=== PATIENT | male | born 1965 | race Caucasian/White ===

== ENCOUNTER 2017-02-01 21:06 | Inpatient (IN) | payer OTHER ==
[~2017-02-01] VITALS: Ht 160 cm; Wt 70.0 kg
[~2017-02-01 21:06] MED LIST: CA CHLORIDE 10% 10 ML SYRINGE ONE; EPINEPHrine 0.1 MG/ML SYG ONE; NA BICARBONATE 8.4% 50 ML SYG ONE
[2017-02-01] MEDS ORDERED: ASPIRIN 325 MG TAB PO STA (21:12)
[2017-02-01] MEDS ORDERED: ONDANSETRON 4 MG INJ IV STA (21:12)
[2017-02-01] MEDS ORDERED: morphine 4 MG/ML VIAL IV STA (21:12)
[2017-02-01] MEDS ORDERED: SOD CHLORIDE 0.9% 500 ML IV STA (21:21)
--- NOTE | 2017-02-01 21:21 | ERD ---
ER Documentation Chief Complaint Chief Complaint dizziness/vomiting all week, worse today, now CP upon arrival; ekg= STEMI HPI This is a 51-year-old male who has a history of diabetes, high cholesterol, hypertension, dialysis who had a recent myocardial infarction with stent placed at all of the hospital last Sunday. Patient states that he has been taking his medicine and he does take Plavix and Coumadin. He states that today's felt dizzy off and on with vomiting and off-and-on chest pressure without radiation. He says currently his pain is very mild. No diaphoresis no difficulty breathing. He said he went to dialysis this morning ROS All systems reviewed and are negative except as per history of present illness. FmHx Family History: coronary disease Physical Exam Vitals Vital Signs Date Time Temp Pulse Resp B/P Pulse Ox O2 Delivery O2 Flow Rate FiO2 02/01/17 21:09 98.3 69 20 88/67 100 Physical Exam Const: Well-developed, well-nourished Head: Atraumatic, normocephalic Eyes: Normal Conjunctiva, PERRLA, EOMI, normal sclera, no nystagmus ENT: Normal External Ears, Nose and Mouth, moist mucus membranes. Neck: Full range of motion. No meningismus, no lymphadenopathy. Resp: Clear to auscultation bilaterally, no wheezing, rhonchi, rales Cardio: Regular rate and rhythm, no murmurs, S1 S2 present Abd: Soft, non tender x 4, non distended. 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 as well normal inspection, neurovascularly intact x 4 Neur: Awake and alert, STR 5/5 x 4, sensation intact x 4, no focal findings, cerebellum intact Psych: Normal Mood and Affect Results 24 hrs Current Medications Medications (Trade) Dose Ordered Sig/Rossy Route PRN Reason Start Time Stop Time Status Last Admin Dose Admin Aspirin (Aspirin) 325 mg ONCE STAT PO 02/01/17 21:12 02/01/17 21:14 DC Morphine Sulfate (morphine) 4 mg ONCE STAT IV 02/01/17 21:12 02/01/17 21:14 DC Ondansetron HCl (Zofran Inj) 4 mg ONCE STAT IV 02/01/17 21:12 02/01/17 21:14 DC Procedures/MDM EKG: Rate/Rhythm: Acute myocardial infarction of the inferior leads QRS, ST, QT: NORMAL TN, QRS, QT, ST elevation in lead II, 3, aVF] Impression: Acute PA Patient received aspirin here Zofran and morphine. Spoke with raw scales operator Dr. Breaux who is in route and [id number] Patient will go to the [facility] urgently Critical Care Time: 30 minutes Treatments/Evaluations: Close monitoring and treatment of unstable vital signs, cardiorespiratory, and neurologic status, while maintaining tight balance of fluid, respiratory, and cardiac interventions. This time includes discussing the case with the patient and the patient's family. This time does not include all procedures stated elsewhere in this record. This time also includes reviewing old records, labs and radiological studies. This time includes examining and re-examining the patient. Additionally, this time also includes arranging care with admitting and consulting physicians. Departure Diagnosis: Primary Impression: ST elevation myocardial infarction (STEMI) Involved coronary artery: other inferior wall coronary artery Qualified Code : I21.19 - ST elevation myocardial infarction (STEMI) involving other coronary artery of inferior wall Condition: Serious VERONICA JARRETT DO Feb 01, 2017 21:21
[2017-02-01 21:26] LABS: BASOPHIL # 0.1 10^3/ul (0.0-0.1); BASOPHILS % 0.4 % (0.0-2.0); EOSINOPHILS % 0.3 % (0.0-7.0); HEMATOCRIT 32.4 % (42.0-52.0); HEMOGLOBIN 10.8 g/dl (14.0-18.0); LYMPHOCYTES # 1.1 10^3/ul (0.8-2.9); LYMPHOCYTES % 9.3 % (15.0-51.0); MEAN CORPUSCULAR HGB CONC 33.3 g/dl (32.0-37.0); MEAN CORPUSCULAR VOLUME 93.1 fl (82.0-101.0); MEAN PLATELET VOLUME 12.2 fl (7.4-10.4); MONOCYTE # 1.3 10^3/ul (0.3-0.9); MONOCYTES % 10.7 % (0.0-11.0); NEUTROPHIL # 9.6 10^3/ul (1.6-7.5); NEUTROPHILS % 78.5 % (39.0-77.0); PLATELET COUNT 204 10^3/UL (140-415); RED BLOOD COUNT 3.48 10^6/ul (4.70-6.10); RED CELL DISTRIBUTION WIDTH 13.3 % (11.5-14.5); WHITE BLOOD COUNT 12.3 10^3/ul (4.8-10.8)
[2017-02-01] MEDS ORDERED: HEPARIN 5,000 UNIT/0.5 ML VIAL IV ONE (21:30)
--- NOTE | 2017-02-01 21:30 | RADRPT ---
PROCEDURE: XR Chest. CLINICAL INDICATION: Chest pain TECHNIQUE: Single frontal chest x-ray. COMPARISON: None. FINDINGS: The lungs are clear. No focal opacification is seen. Mild central vascular congestion is identified . The cardiomediastinal silhouette is enlarged. The osseous structures are unremarkable. Right up per chest central line is seen with the tip in the right atrium. There is no pneumothorax. Transcuta neous pacer pad seen overlapping the right hemithorax. IMPRESSION: 1. Cardiomegaly with mild increased vascular congestion. 2. Right central line in good position without pneumothorax. RPTAT: PP .Kashif Robin MD, MD Date Time Electronically viewed and signed by .Kashif Robin MD, MD on 02/01/2017 21:30 .B/
[2017-02-01] MEDS ORDERED: CLON0.2T5 PO (21:31)
[2017-02-01] MEDS ORDERED: DOCU-144 PO (21:32)
[2017-02-01] MEDS ORDERED: MINO2.5T16 PO (21:32)
[2017-02-01] MEDS ORDERED: BENA40TA41 PO (21:33)
[2017-02-01] MEDS ORDERED: ISOS60TA PO (21:33)
[2017-02-01] MEDS ORDERED: CARV25TA79 PO (21:34)
[2017-02-01] MEDS ORDERED: WARF3TAB PO (21:34)
[2017-02-01] MEDS ORDERED: SEVE800T10 PO (21:35)
[2017-02-01] MEDS ORDERED: CLOP75TA27 PO (21:35)
[2017-02-01] MEDS ORDERED: INSU100I33 SC (21:38)
[2017-02-01] MEDS ORDERED: AZIT250T6 PO (21:38)
[2017-02-01] MEDS ORDERED: NITROGLYCERIN (IC) 100 MCG/ML INJ ONE (21:39)
[2017-02-01] MEDS ORDERED: FENTAnyl 50 MCG/ML VIAL ONE (21:39)
[2017-02-01] MEDS ORDERED: ATOR40TA68 PO (21:39)
[2017-02-01] MEDS ORDERED: MIDAZOLAM 1 MG/ML 2 ML INJ ONE (21:39)
[2017-02-01] MEDS ORDERED: FAMO20TA18 PO (21:39)
[2017-02-01] MEDS ORDERED: IODIXANOL LOCM 100 ML BTL ONE (21:39)
[2017-02-01] MEDS ORDERED: LIDOCAINE 1% (MDV) 20 ML INJ ONE (21:39)
[2017-02-01] MEDS ORDERED: HEPARIN 1000 UNITS/ML 10 ML INJ ONE (21:39)
[2017-02-01] MEDS ORDERED: SOD CHLORIDE 0.9% 500 ML ONE (21:40)
[2017-02-01] MEDS ORDERED: IOHEXOL 350MG/ML 50 ML BTL ONE (21:40)
[2017-02-01 21:45] VITALS: TEMP 98.3
[2017-02-01 21:46] LABS: INR 2.55; PARTIAL THROMBOPLASTIN TIME 39.4 Sec (25.0-35.0); PROTIME 28.1 Sec (11.9-14.9); PT RATIO 2.2
[2017-02-01 21:49] LABS: CALCIUM 9.2 mg/dl (8.4-10.2); CREATININE 6.24 mg/dl (0.61-1.24); POTASSIUM 5.3 mmol/L (3.5-5.1)
--- NOTE | 2017-02-01 21:56 | CONS ---
Date/Time of Note Date/Time of Note DATE: 02/01/17 TIME: 21:47 Assessment/Plan Assessment/Plan Chief Complaint/Hosp Course 51 yo with multiple comorbidities, cad, esrd, dm, pvd post bka, presents with needle like cp for days, with stent 8 days ago, and convulsions noted today. Problems: Additional Assessment/Plan Abnormal ekg with recent angioplasty and stent placement Limited history, but given symptoms and abnormal ekg with known recent stent, will proceed with cor angiogram. Risks and benefits reviewed, boarder hand present, pt agrees to proceed, all questions answered. Consultation Date/Type/Reason Admit Date/Time 02/01/2017 Date of Consultation: Feb 01, 2017 Type of Consultation: cardiology Reason for Consultation STEMI Referring Provider: VERONICA JARRETT DO Hx of Present Illness 51 yo with known cad, diabetes, pvd s/p r bka, who presented to [facility] last week and had a stent placed to unknown artery eight days ago, was in the hospital for 8 days. Since then he's felt needle-like pain in the chest, has told the doctor at dialysis but was told he was fine. The reason he was brought to the ER was because he was found to be convulsing and his called paramedics. In ER pt denies pain to me. He states he was on aspirin and warfarin prior to [facility] admission last week, but on discharge he stopped the aspirin and has been taking warfarin and clopidogrel. He states compliance with meds. He does not know why he is on warfarin but has been on it for many years. Spoke to pt's son, who provided a bit more additional history EKG shows nsr, ST elevations diffusely, most prominent in II, III, AVR, depression in AVR, and depression in V1. Constitutional: chills Eyes: no complaints ENT: no complaints Respiratory: no complaints Cardiovascular: chest pain (needle pain) Gastrointestinal: no complaints Genitourinary: no complaints Musculoskeletal: no complaints Skin: no complaints Neurologic: no complaints Endocrine: no complaints Lymphatic: no complaints Psychological: nl mood/affect, no complaints Immunologic: no complaints Past Medical History Medical History: angina, coronary artery disease, diabetes, high cholesterol, hypertension Past Surgical History Past Surgical Hx: angioplasty Family History Significant Family History: no pertinent family hx Social History Smoking Status: Former smoker Exam/Review of Systems Vital Signs Vitals Vital Signs Date Time Temp Pulse Resp B/P Pulse Ox O2 Delivery O2 Flow Rate FiO2 02/01/17 21:25 98.3 69 16 89/75 100 Room Air 02/01/17 21:22 2 02/01/17 21:10 28 Exam Constitutional: alert, oriented, well developed Psych: nl mood/affect, no complaints Head: atraumatic, normocephalic Eyes: EOMI, PERRL, nl conjunctiva, nl lids, nl sclera ENMT: nl external ears & nose, nl lips & teeth, nl nasal mucosa & septum Neck: supple, No bruits, No jvd Respiratory: clear to auscultation, normal air movement Cardiovascular: nl pulses (normal right femoral pulse, absent right radial pulse), regular rate and rhythm Gastrointestinal: nl liver, spleen, non-tender, soft Musculoskeletal: other (right bka) Extremities: No edema Neurological: nl mental status, nl speech Skin: nl turgor, No rash or lesions Results Result Diagram: 02/01/172109 Results 24 hrs Laboratory Tests Test 02/01/17 21:10 White Blood Count 12.3 H Red Blood Count 3.48 L Hemoglobin 10.8 L Hematocrit 32.4 L Mean Corpuscular Volume 93.1 Mean Corpuscular Hemoglobin 31.0 Mean Corpuscular Hemoglobin Concent 33.3 Red Cell Distribution Width 13.3 Platelet Count 204 Mean Platelet Volume 12.2 H Neutrophils % 78.5 H Lymphocytes % 9.3 L Monocytes % 10.7 Eosinophils % 0.3 Basophils % 0.4 Nucleated Red Blood Cells % 0.0 Neutrophils # 9.6 H Lymphocytes # 1.1 Monocytes # 1.3 H Eosinophils # 0.0 Basophils # 0.1 Nucleated Red Blood Cells # 0.0 Prothrombin Time 28.1 H Prothrombin Time Ratio 2.2 INR International Normalized Ratio 2.55 Activated Partial Thromboplast Time 39.4 H JADE PENNINGTON Feb 01, 2017 21:56
[2017-02-01 22:01] LABS: TROPONIN-I 0.058 ng/ml (0.00-0.12)
[2017-02-01] MEDS ORDERED: ONDANSETRON 4 MG INJ ONE (22:02)
[2017-02-01] MEDS ORDERED: SOD CHLORIDE 0.9% 1,000 ML IV SCH (22:22)
[2017-02-01] MEDS ORDERED: AL HYDROX/MG HYDROX/SIMETH 30 ML CUP PO PRN (22:30)
[2017-02-01] MEDS ORDERED: NITROGLYCERIN (SL) 0.4 MG TAB SL PRN (22:30)
[2017-02-01] MEDS ORDERED: ACETAMINOPHEN 650MG/20.3ML CUP PO PRN (22:30)
[2017-02-01] MEDS ORDERED: ACETAMINOPHEN 325 MG TAB PO PRN (22:30)
[2017-02-01] MEDS ORDERED: ONDANSETRON 4 MG INJ IV PRN ×2 (22:30)
[2017-02-01] MEDS ORDERED: morphine 2 MG INJ IV PRN (22:30)
--- NOTE | 2017-02-01 22:46 | OPR ---
Date/Time of Note Date/Time of Note DATE: 02/01/17 TIME: 22:36 Operative Report Procedure Date: Feb 01, 2017 Preoperative Diagnosis abnormal EKG, possible STEMI Postoperative Diagnosis No acute coronary syndrome, patent prox LAD stent Operation/Procedure Performed coronary angiogram, left ventriculography Surgeon see signature line Nanoelectronics Engineer na Anesthesia Type: moderate sedation Estimated Blood Loss: 10 - 50 ml's Transfusion none Specimen none Grafts/Implants none Complications none Indications Convulsions and atypical chest pain with recent h/o stent one week ago for ? NSTEMI and abnormal EKG Procedure Description The procedure was described to the pt, with mustanger present. Risks and benefits reviewed and he agreed to proceed. Pt brought to laboratory technical specialist emergently. Right groin prepped and draped, lidocaine used for local anesthesia. Pt received versed and fentanyl for sedation. Fluoroscopy used to identify landmarks, and using modified seldinger technique with a micropuncture, access obtained in right common femoral artery and sheath placed. JL4 and JR4 catheters advanced over standard j wire and engaged in LM and RCA, and angiography with contrast performed. Pigtail catheter advanced across the LV, pressures measured, and LV gram performed. Pullback gradient measured across aortic valve. Angiography of right MIRROR FABRICATION SUPERVISOR demonstrates sheath above the bifurcation, and Angioseal placed. Findings d/w pt and his two sons and he left the room in stable condition. FINDINGS: LM - short, normal LAD - 40% ostial/prox disease, proximal stent patent, moderate diffuse disease of LAD in mid and distal portion LCX - 30% mid disease RCA - dominant, 60% mid lesion, and moderate diffuse disease LV - EF 60%, no wall motion abnormalities, no gradient across the aortic valve JADE PENNINGTON Feb 01, 2017 22:46
[2017-02-01 23:00] VITALS: Ht 160 cm; Wt 70.0 kg
[2017-02-01] MEDS ORDERED: GLUCOSE GEL 15 GRAM TUBE BUCCAL PRN (23:00)
[2017-02-01] MEDS ORDERED: GLUCOSE GEL 15 GRAM TUBE PO PRN ×2 (23:00)
[2017-02-01] MEDS ORDERED: GLUCAGON 1 MG INJ IM PRN (23:00)
[2017-02-01] MEDS ORDERED: DEXTROSE 50% 50 ML SYRINGE IV PRN (23:00)
--- NOTE | 2017-02-01 23:03 | HP ---
Date/Time of Note Date/Time of Note DATE: 02/01/17 TIME: 23:03 Assessment/Plan VTE Prophylaxis VTE Prophylaxis Intervention: SCD's Lines/Catheters IV Catheter Type (from Nrs): Saline Lock Assessment/Plan Chief Complaint/Hosp Course This is a admitted to the ICU floor for: #1 Chest pain: Rule out ACS versus infectious versus cardiac vs renal etiology. Initially patient's EKG was concerning for STEMI. However, cardiac catheterization did not show any acute stenosis or signs of ischemia. Patient did have a patent LAD stent recent HI. Stat echocardiogram was ordered, which did not elicit any signs of tamponade though there was signs of pericardial effusion. Pericarditis, probably uremic Moderate sized pericardial effusion without tamponade Intermittent junctional rhythms, possibly secondary to uremia Coronary disease s/p pci/stent last week for an acute coronary syndrome Hypotension, secondary to uremia +/- septic shock ESRD PVD s/p BKA and hand amputation Problems: HPI/ROS Admit Date/Time Admit Date/Time 02/01/2017 Hx of Present Illness cc: chest pain, convulsions This is a 51-year-old male who has a history of diabetes, high cholesterol, hypertension, dialysis who had a recent myocardial infarction with stent placed at all of the hospital last Sunday. History was obtained from the ED physician documentation as well as the finance mgr documentation and from interviewing the patient. Patient states that he has been taking his medicine and he does take Plavix and Coumadin. He states that today's felt dizzy off and on with vomiting and off-and-on chest pressure without radiation. Denied no diaphoresis no difficulty breathing. He said he went to dialysis this morning. Upon coming to the ED the patient was found to have EKG showing nsr, ST elevations diffusely, most prominent in II, III, AVR, depression in AVR, and depression in V1. He was taken to the [facility] emerg[facility]. Catheterization was performed however there were no acute abnormalities found there was a patent ED stent already observed. Patient was subsequently transferred to the telemetry floor by the finance mgr. Shortly after being transferred to the floor, a rapid response was called and the patient. At the bedside the nurse noted that the patient was having convulsions/seizure-like activity. On the front desk monitor it was noted that he was bradycardic in the 60s. He did have pulses. He was nonresponsive at that time. He was given atropine 0.5 mg 1. With subsequent improvement in his heart rate into the 80s. Began to regain his consciousness within a few minutes and he was able to answer questions and stated that he was tired. Patient was subsequently transferred to the ICU. In the ICU, the patient was observed to have similar episodes of bradycardia followed by convulsive convulsions and unresponsiveness. This occurred approximately twice after the rapid response. After the second occurrence, he was loaded with Keppra 1000 mg as is thought to be secondary to seizures. Also of note at this time patient's blood pressure was in the hypotensive range he was given fluid resuscitation with approximately 1500 cc total fluid normal saline however blood pressures were not adequate and levophed was initially started. CT of the brain and abdomen pelvis were also ordered. CT of the abdomen and pelvis showed large pleural effusion. At that time the finance mgr was called and recommendation was to get a stat echocardiogram and have a paracentesis needle at the bedside in case the patient was developing cardiac tamponade. Recommendation by the finance mgr also to switch from Levophed to dopamine. ROS The systems are obtained when patient was back to mental baseline during rapid response Const: As per HPI Eyes : No pain discharge or redness or change in visual acuity ENT: No pain, sore throat, congestion, congestion, dysphagia or discharge Respiratory: No shortness of breath, cough, sputum, wheezing, or pleuritic pain Cardiovascular: As per HPI GI : no change in appetite, abdominal pain, nausea, vomiting, diarrhea, constipation, or change in the color his stool Genitourinary: No dysuria, hematuria, flank pain , discharge or CVA tenderness Musculoskeletal: No joint pain, back pain, neck pain, restricted range of motion in neck or joints Skin: No rash, bruising or hives Neuro: No headache, dizziness, syncope, seizure, focal weakness Endocrine: No polyuria, polydipsia, temperature intolerance Psych: No hallucination, depression, anxiety or suicidal ideation Eyes: no complaints ENT: no complaints Respiratory: no complaints Cardiovascular: chest pain (needle pain) Gastrointestinal: no complaints Genitourinary: no complaints Musculoskeletal: no complaints Skin: no complaints Neurologic: no complaints Lymphatic: no complaints Psychological: nl mood/affect, no complaints Immunologic: no complaints PMH/Family/Social Past Medical History diabetes, high cholesterol, hypertension, ESRD on dialysis, HI Past Surgical History Angioplasty with stents Family History Significant Family History: no pertinent family hx Social History Alcohol Use: none Smoking Status: Former smoker Drug Use: none Exam/Review of Systems Vital Signs Vitals Vital Signs Date Time Temp Pulse Resp B/P Pulse Ox O2 Delivery O2 Flow Rate FiO2 02/01/17 21:45 98.3 69 20 96/69 100 Room Air 02/01/17 21:40 2.0 02/01/17 21:10 28 Exam Exam General: I saw the patient [facility] in the telemetry floor during the rapid response patient was initially noted to be nonresponsive and he was bradycardic, was given atropine 0.5 mg 1 which resulted in subsequent improvement in the heart rate. She will return to baseline mental status over the course of a few minutes stated he was tired. HEENT: Atraumatic, normocephalic. The pupils are equal, round and reactive. Extraocular motor are intact Neck: Supple with full range of motion. No rigidity or meningismus Chest: Nontender Lungs: Clear to auscultation bilaterally no crackles rales or wheezing Heart: Initially sinus bradycardia at approximately 40 bpm with subsequent improvement in the heart rate to 80 bpm after atropine 2.5 mg 1 Abdomen: Soft , nontender, nondistended , bowel sounds are present. No guarding no rebound tenderness , No masses or organomegaly. No costovertebral temporal angle mass Extremities: Right BKA Neurologic: Initially patient was nonresponsive during the rapid response however once returned to his mental baseline he was alert and oriented 3, he was able to answer questions appropriately, was able to follow commands. Cranial nerves II through XII intact, no focal neurological deficits. Additional Comments PROCEDURE: CT BRAIN WITHOUT CONTRAST CLINICAL INDICATION: 51-year-old male with seizures. TECHNIQUE: The study was performed utilizing [employer] VCT 64-slice CT scanner. Direct axial sections were obtained from the foramen magnum to the vertex without the use of intravenous contrast material. Sagittal and coronal reformations were obtained. One or more of the following dose reduction techniques were utilized: automated exposure control, adjustment of the mA and/ or kV according to patient's size and/or use of iterative reconstruction technique. DICOM images are available. The images were viewed on a PACS workstation. CTD/vol = 44.4 mGy; Total Exam DLP = 810.3 mGy-cm. COMPARISON: None. FINDINGS: There is mild prominence of the sulci and cisternal spaces consistent with diffuse volume loss. Otherwise, the ventricles have a normal shape and position. There is no evidence for mass effect or midline shift. There are marked calcifications within the intracranial carotid and vertebral arteries bilaterally. There is no evidence for acute intra or extra-axial blood. The bony calvarium is intact. There are diffuse calcifications identified within the scalp vessels. The visualized paranasal sinuses and mastoid air cells are without significant abnormal soft tissue. IMPRESSION: 1. Mild diffuse volume loss. 2. Extensive vascular calcifications. .Zain Vigil MD, Date Time Electronically viewed and signed by .Zain Vigil MD, MD on 02/02/2017 04:51 .M/ CC: BRADY CONNELL PROCEDURE: XR Chest. CLINICAL INDICATION: Chest pain TECHNIQUE: Single frontal chest x-ray. COMPARISON: None. FINDINGS: The lungs are clear. No focal opacification is seen. Mild central vascular congestion is identified. The cardiomediastinal silhouette is enlarged. The osseous structures are unremarkable. Right upper chest central line is seen with the tip in the right atrium. There is no pneumothorax. Transcutaneous pacer pad seen overlapping the right hemithorax. IMPRESSION: 1. Cardiomegaly with mild increased vascular congestion. 2. Right central line in good position without pneumothorax. RPTAT: PP .Kashif Robin MD, MD Date Time Electronically viewed and signed by .Kashif Robin MD, MD on 02/01/2017 21:30 .B/ CC: VERONICA JARRETT DO PROCEDURE: CT Abdomen and Pelvis without contrast. CLINICAL INDICATION: Abdominal pain and vomiting. TECHNIQUE: CT scan of the abdomen and pelvis without contrast was performed on a multidetector high-resolution CT scanner. The patient was scanned without intravenous contrast. Coronal and sagittal reformatted images were obtained from the axial source images. Images were reviewed on a high-resolution PACS workstation. The total exam CTDI equals 14.75 mGy and the total exam DLP equals 940.53 mGy-cm. DICOM images are available. One or more of the following dose reduction techniques were used: - Automated exposure control. - Adjustment of the mA and/or kV according to patient size. - Use of iterative reconstruction technique. COMPARISON: None. FINDINGS: CT abdomen: A right subclavian central venous dialysis catheter terminates within the right atrium. There is moderate cardiomegaly with a large pericardial effusion measuring up to 2.9 cm in transverse dimension. There is a small right-sided pleural effusion. Lingula and bilateral lower lobe patchy parenchymal opacities with diagnostic considerations including atelectasis, infiltrates and/or fibrosis. There is mild ascites. The liver is normal in size and density without focal mass or intrahepatic biliary dilatation. The spleen is normal in size and homogeneous. The stomach is partially collapsed, but is grossly unremarkable. The pancreas as visualized is normal. Fluid surrounds the gallbladder wall which appears thickened possibly on the basis of ascites. No evidence of intra or extrahepatic biliary ductal dilatation. The adrenal glands are symmetric and normal. There is bilateral renal atrophy. No renal calculus or obstructive uropathy or solid mass lesion is seen. A 11 mm left upper pole renal cyst is noted. The aorta is of normal caliber. Aortic vascular calcifications are present. There is no retroperitoneal lymphadenopathy. The collin hepatis region is clear. There is focal thickening of the hepatic flexure present on axial and coronal images 92 of series 3 and 43 of series 601 respectively. Consider barium enema or direct visualization to exclude an underlying mass. CT pelvis: The small bowel loops situated within the pelvis are unremarkable. The pelvic organs are normal. The pelvic sidewalls and inguinal regions are clear. The sigmoid colon and rectum are unremarkable. No mass, lymphadenopathy, or free fluid is seen. No acute inflammation is seen. No osteolytic or osteoblastic lesion is detected. IMPRESSION: 1. Cardiomegaly with large pericardial effusion. 2. Small right-sided pleural effusion. Lingula and bibasilar parenchymal opacities with considerations including atelectasis, infiltrates and/or fibrosis. 3. Mild ascites. 4. Appearing gallbladder wall thickening which may be secondary to surrounding ascites. 5. Focal thickening of the hepatic flexure without mesenteric inflammatory changes. Consider non emergent barium enema or direct visualization to exclude colonic pathology. RPTAT: HRSR Physician Maria A Date Time Electronically viewed and signed by Joel Corral Physician on 02/02/2017 05 :02 RR/ CC: BRADY CONNELL Labs Result Diagram: 02/01/17210902/01/172109 Medications Medications Current Medications Acetaminophen (Tylenol Tab) 650 mg Q4H PRN PO NON-CARDIAC PAIN LEVEL (1-3); Start 02/01/17 at 22:30 Morphine Sulfate (morphine) 2 mg Q2H PRN IV FOR NON CARDIAC PAIN (4-10); Start 02/01/17 at 22:30 Al Hydrox/Mg Hydrox/Simethicone (Mag-Al Plus) 30 ml Q4H PRN PO GASTROINTESTINAL UPSET; Start 02/01/17 at 22:30 Ondansetron HCl 4 mg 4 mg Q4H PRN IV NAUSEA AND/OR VOMITING; Start 02/01/17 at 22:30 Sodium Chloride (NS) 1,000 ml @ 75 mls/hr [id number] IV ; Start 02/01/17 at 22:22 ; Stop 02/02/17 at 03:21 Ondansetron HCl (Zofran Inj) 4 mg Q6H PRN IV NAUSEA AND/OR VOMITING; Start at 22:30 Nitroglycerin (Nitroglycerin (Sl Tab) 0.4 Mg) 1 tab Q5M PRN SL CHEST PAIN; Start 02/01/17 at 22:30 Acetaminophen (Tylenol Liquid) 650 mg Q6H PRN PO PAIN LEVEL 1-3 OR FEVER; Start 02/01/17 at 22:30 Pantoprazole (Protonix Iv) 40 mg DAILY@06 IV ; Start 02/02/17 at 06:00 Atorvastatin Calcium (Lipitor) 40 mg QHS PO ; Start 02/02/17 at 21:00; Status UNV Benazepril HCl (Lotensin) 40 mg DAILY PO ; Start 02/02/17 at 09:00; Status UNV Carvedilol (Coreg) 25 mg BID PO ; Start 02/02/17 at 09:00; Status UNV Clonidine (Catapres) 0.2 mg BID PO ; Start 02/02/17 at 09:00; Status UNV Clopidogrel Bisulfate (plaVIX) 75 mg DAILY PO ; Start 02/02/17 at 09:00 Docusate Sodium (Colace) 100 mg BID PO ; Start 02/02/17 at 09:00; Status UNV Insulin Glargine (Lantus) 8 unit QHS SC ; Start 02/02/17 at 21:00; Status UNV Isosorbide Mononitrate (Imdur) 60 mg DAILY PO ; Start 02/02/17 at 09:00; Status UNV Minoxidil (Loniten) 5 mg BID PO ; Start 02/02/17 at 09:00; Status UNV Warfarin Sodium (Coumadin) 3 mg DAILY PO ; Start 02/02/17 at 09:00; Status UNV Aspirin (Aspirin) 81 mg DAILY PO ; Start 02/02/17 at 09:00 Diagnostic Test (Pha) (Accu-Chek) 1 ea 02 XX ; Start 02/02/17 at 02:00; Status UNV Miscellaneous Information 1 ea NOTE XX ; Start 02/01/17 at 23:00 Glucose (Glutose) 15 gm Q15M PRN PO DECREASED GLUCOSE; Start 02/01/17 at 23:00 Glucose (Glutose) 22.5 gm Q15M PRN PO DECREASED GLUCOSE; Start 02/01/17 at 23: 00 Dextrose (D50w Syringe) 25 ml Q15M PRN IV DECREASED GLUCOSE; Start 02/01/17 at 23:00 Dextrose (D50w Syringe) 50 ml Q15M PRN IV DECREASED GLUCOSE; Start 02/01/17 at 23:00 Glucagon (Glucagen) 1 mg Q15M PRN IM DECREASED GLUCOSE; Start 02/01/17 at 23: 00 Glucose (Glutose) 15 gm Q15M PRN BUCCAL DECREASED GLUCOSE; Start 02/01/17 at 23:00 BRADY CONNELL Feb 01, 2017 23:03
[2017-02-01 23:05] VITALS: BP 88/55; PULSE 66; RESP 20
[2017-02-01 23:25] VITALS: BP 75/59; PULSE 67
[2017-02-01] MEDS ORDERED: SOD CHLORIDE 0.9% 500 ML IV ONE (23:30)
[2017-02-01] MEDS ORDERED: INSULIN ASPART [NOVOLOG] 3 ML PEN SC ONE (23:30)
[2017-02-01 23:34] VITALS: BP 85/53; RESP 21
[2017-02-02] VITALS (62 sets, daily range): BP systolic 53–202; BP diastolic 13–120; PULSE 0–113; RESP 9–31
[2017-02-02] MEDS ORDERED: METOCLOPRAMIDE 10 MG INJ IV PRN (00:30)
[2017-02-02] MEDS ORDERED: NORepinephrine 8MG/250 ML (PMX 250 ML ONE (01:15)
[2017-02-02] MEDS ORDERED: SOD CHLORIDE 0.9% 500 ML IV ONE ×3 (01:30→07:30)
[2017-02-02] MEDS ORDERED: NORepinephrine 8MG/250 ML (PMX 250 ML IV SCH (01:30)
[2017-02-02 01:46] LABS: AADO2 Arterial 483.2 mmHg (7.0-24.0); Arterial Base Excess -3.7 mmol/L (-3.0-3); Arterial COHb 0.3 % (0.0-3.0); Arterial Fraction of Oxyhgb 98.5 % (93.0-99.0); Arterial HCO3 21.7 mmol/L (22.0-26.0); Arterial MetHb 0.1 % (0.0-1.5); Arterial Total Hemglobin 11.6 g/dl (12.0-18.0); MODE MASK - NRB
[2017-02-02] MEDS ORDERED: ACCU-CHEK XX SCH ×2 (02:00→07:00)
[2017-02-02 02:04] LABS: WHITE BLOOD COUNT 10.5 10^3/ul (4.8-10.8)
[2017-02-02 02:05] LABS: BASOPHILS % 0.4 % (0.0-2.0); EOSINOPHILS % 0.1 % (0.0-7.0); HEMATOCRIT 29.8 % (42.0-52.0); HEMOGLOBIN 9.8 g/dl (14.0-18.0); LYMPHOCYTES # 0.9 10^3/ul (0.8-2.9); MEAN CORPUSCULAR HEMOGLOBIN 31.1 pg (29.0-33.0); MEAN CORPUSCULAR HGB CONC 32.9 g/dl (32.0-37.0); MEAN CORPUSCULAR VOLUME 94.6 fl (82.0-101.0); MEAN PLATELET VOLUME 12.3 fl (7.4-10.4); MONOCYTES % 9.4 % (0.0-11.0); NEUTROPHIL # 8.4 10^3/ul (1.6-7.5); NEUTROPHILS % 80.2 % (39.0-77.0); PLATELET COUNT 186 10^3/UL (140-415); RED BLOOD COUNT 3.15 10^6/ul (4.70-6.10); RED CELL DISTRIBUTION WIDTH 13.4 % (11.5-14.5)
[2017-02-02 02:25] LABS: ALBUMIN 3.1 g/dl (3.3-4.9); ALBUMIN/GLOBULIN RATIO 0.91; CALCIUM 8.8 mg/dl (8.4-10.2); CREATININE 6.35 mg/dl (0.61-1.24); MAGNESIUM 2.2 mg/dl (1.7-2.5); POTASSIUM 4.8 mmol/L (3.5-5.1); TOTAL PROTEIN 6.5 g/dl (6.1-8.1)
[2017-02-02] MEDS ORDERED: LORAZEPAM 2 MG INJ IV PRN (02:30)
[2017-02-02] MEDS ORDERED: INSULIN HUMAN REGULAR 100 UNIT in SOD CHLORIDE 0.9% 99 ML IV SCH (03:00)
[2017-02-02] MEDS ORDERED: DEXTROSE 50% 50 ML SYRINGE IV PRN ×2 (03:00)
[2017-02-02 03:22] LABS: TROPONIN-I 0.053 ng/ml (0.00-0.12)
[2017-02-02 03:26] LABS: CK-MB 1.44 ng/ml (0.0-2.4)
[2017-02-02] MEDS: LEVETIRACETAM 1000 MG (PMX) 100 ML IVPB SCH ×2 (03:48→10:06)
[2017-02-02] MEDS: ACCU-CHEK XX SCH ×11 (03:50→13:30)
--- NOTE | 2017-02-02 04:51 | RADRPT ---
PROCEDURE: CT BRAIN WITHOUT CONTRAST CLINICAL INDICATION: 51-year-old male with seizures. TECHNIQUE: The study was performed utilizing [employer] VCT 64-slice CT scanner. Direct axial sections were obtained from the foramen magnum to the vertex without the use of intravenous contrast material. Sagittal and coronal reformations were obtained. One or more of the following dose reduc tion techniques were utilized: automated exposure control, adjustment of the mA and/or kV according to patient's size and/or use of iterative reconstruction technique. DICOM images are available. The images were viewed on a PACS workstation. CTD/vol = 44.4 mGy; Total Exam DLP = 810.3 mGy-cm. COMPARISON: None. FINDINGS: There is mild prominence of the sulci and cisternal spaces consistent with diffuse volume loss. Oth erwise, the ventricles have a normal shape and position. There is no evidence for mass effect or mid line shift. There are marked calcifications within the intracranial carotid and vertebral arteries bilaterally. There is no evidence for acute intra or extra-axial blood. The bony calvarium is intact . There are diffuse calcifications identified within the scalp vessels. The visualized paranasal sin uses and mastoid air cells are without significant abnormal soft tissue. IMPRESSION: 1. Mild diffuse volume loss. 2. Extensive vascular calcifications. .Zain Vigil MD, Date Time Electronically viewed and signed by .Zain Vigil MD, on 02/02/2017 04:51 .M/
[2017-02-02] MEDS ORDERED: PENDING SANTYL ORDER FOR WOUND CARE XX PRN (05:00)
--- NOTE | 2017-02-02 05:02 | RADRPT ---
PROCEDURE: CT Abdomen and Pelvis without contrast. CLINICAL INDICATION: Abdominal pain and vomiting. TECHNIQUE: CT scan of the abdomen and pelvis without contrast was performed on a multidetector hig h-resolution CT scanner. The patient was scanned without intravenous contrast. Coronal and sagittal reformatted images were obtained from the axial source images. Images were reviewed on a high-resol [employer] PACS workstation. The total exam CTDI equals 14.75 mGy and the total exam DLP equals 940.53 mG y-cm. DICOM images are available. One or more of the following dose reduction techniques were used: - Automated exposure control. - Adjustment of the mA and/or kV according to patient size. - Use of iterative reconstruction technique. COMPARISON: None. FINDINGS: CT abdomen: A right subclavian central venous dialysis catheter terminates within the right atrium. There is mod erate cardiomegaly with a large pericardial effusion measuring up to 2.9 cm in transverse dimension. There is a small right-sided pleural effusion. Lingula and bilateral lower lobe patchy parenchymal opacities with diagnostic considerations including atelectasis, infiltrates and/or fibrosis. There is mild ascites. The liver is normal in size and density without focal mass or intrahepatic b iliary dilatation. The spleen is normal in size and homogeneous. The stomach is partially collapsed , but is grossly unremarkable. The pancreas as visualized is normal. Fluid surrounds the gallbladd er wall which appears thickened possibly on the basis of ascites. No evidence of intra or extrahepat ic biliary ductal dilatation. The adrenal glands are symmetric and normal. There is bilateral renal atrophy. No renal calculus or obstructive uropathy or solid mass lesion is seen. A 11 mm left upper pole renal cyst is noted. The aorta is of normal caliber. Aortic vascular calcifications are present. There is no retroperit chavez lymphadenopathy. The collin hepatis region is clear. There is focal thickening of the hepatic flexure present on axial and coronal images 92 of series 3 and 43 of series 601 respectively. Consid er barium enema or direct visualization to exclude an underlying mass. CT pelvis: The small bowel loops situated within the pelvis are unremarkable. The pelvic organs are normal. T he pelvic sidewalls and inguinal regions are clear. The sigmoid colon and rectum are unremarkable. No mass, lymphadenopathy, or free fluid is seen. No acute inflammation is seen. No osteolytic or osteoblastic lesion is detected. IMPRESSION: 1. Cardiomegaly with large pericardial effusion. 2. Small right-sided pleural effusion. Lingula and bibasilar parenchymal opacities with considerati ons including atelectasis, infiltrates and/or fibrosis. 3. Mild ascites. 4. Appearing gallbladder wall thickening which may be secondary to surrounding ascites. 5. Focal thickening of the hepatic flexure without mesenteric inflammatory changes. Consider non em ergent barium enema or direct visualization to exclude colonic pathology. RPTAT: HRSR Physician Maria A Date Time Electronically viewed and signed by Physician Maria A on 02/02/2017 05:02 RR/
[2017-02-02] MEDS ORDERED: ATROPINE 1 MG/10 ML SYRINGE ONE ×2 (05:19→07:48)
[2017-02-02] MEDS ORDERED: PANTOPRAZOLE 40 MG INJ IV SCH (06:00)
[2017-02-02] MEDS ORDERED: LORAZEPAM 2 MG INJ IV ONE (06:00)
[2017-02-02] MEDS ORDERED: DOPamine-D5W 1.6 MG/ML 250 ML ONE (06:11)
[2017-02-02] MEDS ORDERED: DOPamine-D5W 1.6 MG/ML 250 ML IV SCH (06:30)
[2017-02-02] MEDS ORDERED: SOD CHLORIDE 0.9% 250 ML IV ONE (06:30)
[2017-02-02 07:01] LABS: INR 3.02; PROTIME 32.2 Sec (11.9-14.9); PT RATIO 2.5
[2017-02-02 07:04] LABS: CHOL/HDL RATIO 1.5 RATIO
[2017-02-02 07:14] LABS: ALBUMIN 2.9 g/dl (3.3-4.9); ALBUMIN/GLOBULIN RATIO 0.9; CREATININE 5.68 mg/dl (0.61-1.24); PHOSPHORUS 4.4 mg/dl (2.5-4.9); POTASSIUM 4.6 mmol/L (3.5-5.1); TOTAL PROTEIN 6.1 g/dl (6.1-8.1)
[2017-02-02] MEDS ORDERED: LIDOCAINE 1% (MPF) 5 ML VIAL SC ONE (07:30)
[2017-02-02] MEDS: SEVELAMER 800 MG TAB PO SCH ×2 (07:35→11:30)
[2017-02-02] MEDS ORDERED: INSULIN ASPART [NOVOLOG] 3 ML PEN SC SCH (07:35)
--- NOTE | 2017-02-02 07:48 | PN ---
Date/Time of Note Date/Time of Note DATE: 02/02/17 TIME: 07:38 Assessment/Plan VTE Prophylaxis VTE Prophylaxis Intervention: other (warfarin, elevated INR) Lines/Catheters IV Catheter Type (from Nrs): Peripheral IV Urinary Cath still in place: No Assessment/Plan Chief Complaint/Hosp Course 51 yo with multiple comorbidities presented with convulsions coinciding with junctional rhythm. EKG with ST elevations, pt had a PCI last week, cath with stable coronary disease, and echo shows moderate sized pericardial effusion without tamponade. Patient has pericarditis, most likely etiology is uremic. Problems: Assessment/Plan Impression: Pericarditis, probably uremic Moderate sized pericardial effusion without tamponade Intermittent junctional rhythms, possibly secondary to uremia Coronary disease s/p pci/stent last week for an acute coronary syndrome Hypotension, secondary to uremia +/- septic shock ESRD PVD s/p BKA and hand amputation Reccomendations will place arterial line and central line for better hemodynamic monitoring, emergent need and no family present nor is patient able to give consent D/w Dr. Rosales and patient will undergo dialysis today, and potentially daily dialysis here in hospital asa, clopidogrel, and warfarin Colchicine ordered, if patient becomes more alert can give this to him by mouth Statin for CAD and recent ACS Subjective 24 Hr Interval Summary Free Text/Dictation Overnight pt noted to intermittently convulse, coincides with junctional rhythm with intermittent retrograde P waves. Pt hypotensive and on pressors. CT showed "large pericardial effusion", stat echo demonstrates moderate sized circumferential effusion without tamponade. Arousable but unable to provide meaningful history,when spoken to in Filipino he denies pain, denies dyspnea, says he feels "nelly". Subjective hx not possible: pt critical status (somnolent) Exam/Review of Systems Vital Signs Vitals Vital Signs Date Time Temp Pulse Resp B/P Pulse Ox O2 Delivery O2 Flow Rate FiO2 02/02/17 04:18 72 02/02/17 03:45 15 84/59 100 02/02/17 03:00 Nasal Cannula 5.0 02/02/17 01:30 97.4 02/01/17 21:10 28 Intake and Output 02/01/17 02/01/17 02/02/17 15:00 23:00 07:00 Intake Total 1665 ml Balance 1665 ml Exam Constitutional: frail Psych: nl mood/affect, no complaints Head: atraumatic, normocephalic Eyes: EOMI, nl conjunctiva, nl sclera ENMT: nl external ears & nose Neck: No bruits, No jvd Respiratory: diminished breath sounds Cardiovascular: murmurs/extra sounds (heard at left upper sternal border), regular rate and rhythm Gastrointestinal: non-tender, soft Musculoskeletal: other (right BKA, left hand amputation) Extremities: other (femoral cath site stable on right, no hematoma) Neurological: lethargic, nl speech Skin: nl turgor, No rash or lesions Results Result Diagram: 02/02/1714402/02/17144 Results 24 hrs Laboratory Tests Test 02/01/17 21:10 02/01/17 22:55 02/02/17 01:04 02/02/17 01:30 White Blood Count 12.3 H Red Blood Count 3.48 L Hemoglobin 10.8 L Hematocrit 32.4 L Mean Corpuscular Volume 93.1 Mean Corpuscular Hemoglobin 31.0 Mean Corpuscular Hemoglobin Concent 33.3 Red Cell Distribution Width 13.3 Platelet Count 204 Mean Platelet Volume 12.2 H Neutrophils % 78.5 H Lymphocytes % 9.3 L Monocytes % 10.7 Eosinophils % 0.3 Basophils % 0.4 Nucleated Red Blood Cells % 0.0 Neutrophils # 9.6 H Lymphocytes # 1.1 Monocytes # 1.3 H Eosinophils # 0.0 Basophils # 0.1 Nucleated Red Blood Cells # 0.0 Prothrombin Time 28.1 H Prothrombin Time Ratio 2.2 INR International Normalized Ratio 2.55 Activated Partial Thromboplast Time 39.4 H Sodium Level 132 L Potassium Level 5.3 H Chloride Level 92 L Carbon Dioxide Level 24 Anion Gap 21 H Blood Urea Nitrogen 33 H Creatinine 6.24 H Glucose Level 508 *H Calcium Level 9.2 Troponin I 0.058 B-Type Natriuretic Peptide 47128 H Bedside Glucose 396 H 429 *H Blood Gas Specimen Source Blood arterial Arterial Blood Date Drawn 02/02/2017 1:30:00 AM Arterial Blood pH (Temp corrected) 7.347 L Arterial Blood pCO2 (Temp correct) 40.5 Arterial Blood pO2 (Temp corrected) 189.3 H Arterial Blood HCO3 21.7 L Arterial Blood Base Excess -3.7 L Arterial Blood Oxygen Saturation 98.9 H Mikal Test N/A Arterial Blood Gas Puncture Site Right Brachial Arterial Blood Carboxyhemoglobin 0.3 Arterial Blood Methemoglobin 0.1 Blood Gas A-a O2 Differential 483.2 H Oxyhemoglobin Percent 98.5 Total Hemoglobin 11.6 L Blood Gas Temperature 37.0 Blood Gas Modality MASK - NRB FiO2 100.0 Blood Gas Notified Whom [place] Blood Gas Notified Time 02/02/2017 1:44:09 AM Test 02/02/17 01:34 02/02/17 01:45 02/02/17 04:20 02/02/17 05:08 Bedside Glucose 409 *H 319 H 357 H White Blood Count 10.5 Red Blood Count 3.15 L Hemoglobin 9.8 L Hematocrit 29.8 L Mean Corpuscular Volume 94.6 Mean Corpuscular Hemoglobin 31.1 Mean Corpuscular Hemoglobin Concent 32.9 Red Cell Distribution Width 13.4 Platelet Count 186 Mean Platelet Volume 12.3 H Neutrophils % 80.2 H Lymphocytes % 9.0 L Monocytes % 9.4 Eosinophils % 0.1 Basophils % 0.4 Nucleated Red Blood Cells % 0.0 Neutrophils # 8.4 H Lymphocytes # 0.9 Monocytes # 1.0 H Eosinophils # 0.0 Basophils # 0.0 Nucleated Red Blood Cells # 0.0 Sodium Level 135 Potassium Level 4.8 Chloride Level 96 L Carbon Dioxide Level 25 Anion Gap 19 H Blood Urea Nitrogen 35 H Creatinine 6.35 H Glucose Level 415 *H Lactic Acid Level 2.5 *H Calcium Level 8.8 Phosphorus Level 5.0 H Magnesium Level 2.2 Total Bilirubin 0.0 L Direct Bilirubin 0.00 Indirect Bilirubin 0.0 Aspartate Amino Transf (AST/SGOT) 28 Alanine Aminotransferase (ALT/SGPT) 45 Alkaline Phosphatase 112 Creatine Kinase 69 Creatine Kinase Index 2.1 Creatinine Kinase MB (Mass) 1.44 Troponin I 0.053 Total Protein 6.5 Albumin 3.1 L Globulin 3.40 H Albumin/Globulin Ratio 0.91 Test 02/02/17 06:02 02/02/17 06:07 Prothrombin Time Pending Prothrombin Time Ratio 2.5 INR International Normalized Ratio 3.02 Hemoglobin A1c 9.1 H Triglycerides Level 85 Cholesterol Level 51 L LDL Cholesterol, Calculated 0 HDL Cholesterol 34 Cholesterol/HDL Ratio 1.5 Bedside Glucose 319 H Medications Medications Current Medications Acetaminophen (Tylenol Tab) 650 mg Q4H PRN PO NON-CARDIAC PAIN LEVEL (1-3); Start 02/01/17 at 22:30 Morphine Sulfate (morphine) 2 mg Q2H PRN IV FOR NON CARDIAC PAIN (4-10); Start 02/01/17 at 22:30 Al Hydrox/Mg Hydrox/Simethicone (Mag-Al Plus) 30 ml Q4H PRN PO GASTROINTESTINAL UPSET; Start 02/01/17 at 22:30 Ondansetron HCl (Zofran Inj) 4 mg Q4H PRN IV NAUSEA AND/OR VOMITING; Start at 22:30 Ondansetron HCl (Zofran Inj) 4 mg Q6H PRN IV NAUSEA AND/OR VOMITING; Start at 22:30 Nitroglycerin (Nitroglycerin (Sl Tab) 0.4 Mg) 1 tab Q5M PRN SL CHEST PAIN; Start 02/01/17 at 22:30 Acetaminophen (Tylenol Liquid) 650 mg Q6H PRN PO PAIN LEVEL 1-3 OR FEVER; Start 02/01/17 at 22:30 Pantoprazole (Protonix Iv) 40 mg DAILY@06 IV Last administered on 02/02/17t 06: 33; Admin Dose 40 MG; Start 02/02/17 at 06:00 Atorvastatin Calcium (Lipitor) 40 mg QHS PO ; Start 02/02/17 at 21:00 Benazepril HCl (Lotensin) 40 mg DAILY PO ; Start 02/02/17 at 09:00 Carvedilol (Coreg) 25 mg BID PO ; Start 02/02/17 at 09:00 Clonidine (Catapres) 0.2 mg BID PO ; Start 02/02/17 at 09:00 Clopidogrel Bisulfate (plaVIX) 75 mg DAILY PO ; Start 02/02/17 at 09:00 Docusate Sodium (Colace) 100 mg BID PO ; Start 02/02/17 at 09:00 Isosorbide Mononitrate (Imdur) 60 mg DAILY PO ; Start 02/02/17 at 09:00 Minoxidil (Loniten) 5 mg BID PO ; Start 02/02/17 at 09:00 Warfarin Sodium (Coumadin) 3 mg DAILY@17 PO ; Start 02/02/17 at 17:00 Aspirin (Aspirin) 81 mg DAILY PO ; Start 02/02/17 at 09:00 Miscellaneous Information 1 ea NOTE XX ; Start 02/01/17 at 23:00 Glucose (Glutose) 15 gm Q15M PRN PO DECREASED GLUCOSE; Start 02/01/17 at 23:00 Glucose (Glutose) 22.5 gm Q15M PRN PO DECREASED GLUCOSE; Start 02/01/17 at 23: 00 Dextrose (D50w Syringe) 25 ml Q15M PRN IV DECREASED GLUCOSE; Start 02/01/17 at 23:00 Dextrose (D50w Syringe) 50 ml Q15M PRN IV DECREASED GLUCOSE; Start 02/01/17 at 23:00 Glucagon (Glucagen) 1 mg Q15M PRN IM DECREASED GLUCOSE; Start 02/01/17 at 23: 00 Glucose (Glutose) 15 gm Q15M PRN BUCCAL DECREASED GLUCOSE; Start 02/01/17 at 23:00 Metoclopramide HCl 10 mg 10 mg Q6H PRN IV NAUSEA AND/OR VOMITING Last administered on 02/02/17 00:34; Admin Dose 10 MG; Start 02/02/17 at 00:30 Norepinephrine 250 ml @ 1.875 mls/ hr TITRATE IV Last administered on 01:32; Admin Dose 3.75 MLS/HR; Start 02/02/17 at 01:30; Stop 02/02/17 at 08 :59 Norepinephrine/ Dextrose (Levophed/D5W) 500 ml @ 1.87 mls/hr TITRATE IV ; Start 02/02/17 at 09:00 Lorazepam 2 mg 2 mg Q6H PRN IV SEIZURES Last administered on 02/02/17 07:16; Admin Dose 2 MG; Start 02/02/17 at 02:30 Levetiracetam (Keppra 1,000mg/ 100ml (Pmx)) 100 ml @ 400 mls/hr Q12 IVPB Last administered on 02/02/17 03:48; Admin Dose 400 MLS/HR; Start 02/02/17 at 02:30 Diagnostic Test (Pha) (Accu-Chek) 1 ea Q1H XX Last administered on 02/02/17 06 :07; Admin Dose 1 EA; Start 02/02/17 at 03:00 Dextrose (D50w Syringe) 25 ml Q15M PRN IV Till BS 80 mg/dL or above x2; Start 02/02/17 at 03:00 Dextrose (D50w Syringe) 50 ml Q15M PRN IV Till BS 80 mg/dL or above x2; Start 02/02/17 at 03:00 Miscellaneous Information This patient avila... PRN PRN XX WOUND CARE; Start 02/02 at 05:00 Dopamine HCl/ Dextrose 250 ml @ 5.25 mls/hr TITRATE IV Last administered on t 06:24; Admin Dose 5.25 MLS/HR; Start 02/02/17 at 06:30 JADE PENNINGTON Feb 02, 2017 07:47
[2017-02-02] MEDS ORDERED: LIDOCAINE 1% (MDV) 20 ML INJ ONE (07:59)
[2017-02-02] MEDS ORDERED: COLCHICINE 0.6 MG TAB PO ONE (08:00)
--- NOTE | 2017-02-02 08:29 | RADRPT ---
PROCEDURE: XR Chest. CLINICAL INDICATION: Shortness of breath TECHNIQUE: An AP view of the chest was obtained. COMPARISON: CT 02/02/2017; DR CHEST 02/01/2017 FINDINGS: There is a right chest Perm-A-Cath with tip near the cavoatrial junction. There are diffuse interstitial opacities with small bilateral pleural effusions. No pneumothorax is seen. The cardiomediastinal silhouette is mildly enlarged . The osseous structures demonstrate s enescent changes. IMPRESSION: 1. Interstitial edema with small bilateral pleural effusions, increased when compared to the prior examination. 2. Mild cardiomegaly. 3. Right chest Perma-Cath with tip near the cavoatrial junction. RPTAT: HH .Brooke Plaza MD, Date Time Electronically viewed and signed by .Brooke Plaza MD, on 02/02/2017 08:29 .G/
--- NOTE | 2017-02-02 08:34 | OPR ---
Date/Time of Note Date/Time of Note DATE: 02/02/17 TIME: 08:31 Operative Report Procedure Date: Feb 02, 2017 Preoperative Diagnosis shock and pericarditis Postoperative Diagnosis same Operation/Procedure Performed left femoral arterial line placement left femoral central venous line placement Surgeon see signature line Contracting Support Specialist none Anesthesia Type: other (local) Estimated Blood Loss: 0 - 10 ml's Transfusion none Specimen none Grafts/Implants none Complications none Pt Condition Post Procedure: guarded Disposition: other (ICU) Indications 51 yo with multiple comorbidities with hypotension, bradyarrhythmias, and pericarditis. Hemodynamic monitoring needed due to pressor support, and central venous access needed due to need for multiple drips. Procedure Description Consent not obtained because patient obtunded and family not available. It was felt that given his hemondynamic instability that we should proceed urgently. The groin was prepped and draped. 1% lidocaine used for local anesthesia. Then using modified Seldinger technique, access obtained in the left common femoral artery and then left common femoral vein. Sheaths were placed and sewn in place. No immediate complications. JADE PENNINGTON Feb 02, 2017 08:34
--- NOTE | 2017-02-02 08:44 | RADRPT ---
Echocardiogram Report Patient Name: ORION CONTRERAS Gender: Male Date: 1965 Study Date: 02-Feb-2017 Foreign Language Interpreter: Shannan Szymanski RDCS Location: 111 Ref. Physician: BRADY CONNELL Quality: Good Procedures: Transthoracic echocardiogram with complete 2D, M-Mode, and doppler examination. Indications: Pericardial Effusion, stemi. 2D/M Mode Doppler Measurement Value Normal Ranges Measurement Value Normal Ranges LVIDd 2D 2.2 3.5 - 5.6 cm AV Mean Ben 1.6 m/sec LVIDs 2D 1.5 2.1 - 4.1 cm AV Mean PG 15.1 mmHg LVPWd 2D 1.7 0.6 - 1.1 cm AV Peak Ben 3.2 m/sec IVSd 2D 1.7 0.6 - 1.1 cm AV Peak PG 42.1 mmHg AoR Diam 2D 2.2 2.0 - 3.7 cm AV VTI 31.9 cm EDV 2D 15.7 cm3 TR Peak Ben 3.0 m/sec ESV 2D 3.5 cm3 TR Peak PG 35.7 mmHg LA Dimen 2D 2.3 2.3 - 4.0 cm RVSP 55.0 mmHg Findings Left Ventricle: Hyperdynamic left ventricular systolic function. Severe concentric left ventricular hypertrophy. Reduced left ventricular cavity size. Ejection fraction is visually estimated at 75 %. Moderate left ventricular outflow tract obstruction. Right Ventricle: Normal right ventricular size. Normal right ventricular systolic function. Left Atrium: The left atrium is normal in size. Right Atrium: The right atrium is normal in size. Mitral Valve: Mitral valve leaflets appear mildly thickened. Mild mitral annular calcification. Trace mitral regurgitation. Aortic Valve: Normal appearance of the aortic valve. No significant aortic stenosis or insufficiency. Tricuspid Valve: Normal appearance of the tricuspid valve. Estimated peak PA systolic pressure 55 mmHg. There is mild to moderate tricuspid regurgitation. Pulmonic Valve: Pulmonic valve not well visualized. Pericardium: Moderate pericardial effusion. Aorta: Normal aortic root. IVC: Dilated IVC without respiratory collapse consistent with elevated right atrial pressure. Conclusions Technically difficult study due to critical illness and positioning. Severe concentric left ventricular hypertrophy with hyperdynamic systolic function and small cavity size. Elevated LVOT gradients consistent with hypertrophic obstructive cardiomyopathy. Moderate circumferential pericardial effusion without evidence of tamponade. Mild-moderate tricuspid regurgitation with moderate pulmonary hypertension. Electronically Signed By: Vivienne Wright 02-Feb-2017 08:43:00 Patient Name: ORION CONTRERAS Study Date: 02-Feb-[id number]
[2017-02-02] MEDS ORDERED: DOCUSATE SODIUM 100 MG CAP PO SCH (09:00)
[2017-02-02] MEDS ORDERED: MINOXIDIL 2.5 MG TAB PO SCH (09:00)
[2017-02-02] MEDS ORDERED: CLOPIDOGREL 75 MG TAB PO SCH (09:00)
[2017-02-02] MEDS ORDERED: BENAZEPRIL 40 MG TAB PO SCH (09:00)
[2017-02-02] MEDS ORDERED: ISOSORBIDE MONONITRATE(SR)60 MG TAB PO SCH (09:00)
[2017-02-02] MEDS ORDERED: ASPIRIN 81 MG TAB PO SCH (09:00)
[2017-02-02] MEDS: DEXTROSE 50% 50 ML SYRINGE IV PRN ×2 (09:10→09:45)
[2017-02-02 09:48] LABS: AADO2 Arterial 430.7 mmHg (7.0-24.0); Arterial Base Excess -3.4 mmol/L (-3.0-3); Arterial COHb 0.3 % (0.0-3.0); Arterial Fraction of Oxyhgb 98.7 % (93.0-99.0); Arterial HCO3 21.8 mmol/L (22.0-26.0); Arterial MetHb 0.1 % (0.0-1.5); Arterial Total Hemglobin 12.6 g/dl (12.0-18.0); MODE MASK - NRB
[2017-02-02 10:49] LABS: CK-MB 1.79 ng/ml (0.0-2.4); TROPONIN-I 0.066 ng/ml (0.00-0.12)
--- NOTE | 2017-02-02 10:55 | CONS ---
Date/Time of Note Date/Time of Note DATE: 02/02/17 TIME: 10:55 Consultation Date/Type/Reason Admit Date/Time 02/01/2017 Date of Consultation: Feb 02, 2017 Type of Consultation: Pulmonary/critical care Reason for Consultation Pulmonary consultation dictated #[id number] Social History Alcohol Use: none Smoking Status: Former smoker Drug Use: none Exam/Review of Systems Vital Signs Vitals Vital Signs Date Time Temp Pulse Resp B/P Pulse Ox O2 Delivery O2 Flow Rate FiO2 02/02/17 08:00 78 02/02/17 07:45 18 85/75 100 02/02/17 07:00 Non Rebreather 15.0 02/02/17 04:00 97.6 02/01/17 21:10 28 Intake and Output 02/01/17 02/01/17 02/02/17 15:00 23:00 07:00 Intake Total 1896.775 ml Balance 1896.775 ml Results Result Diagram: 02/02/17 0145 02/02/17 0602 Results 24 hrs Laboratory Tests Test 02/01/17 21:10 02/01/17 22:55 02/02/17 01:04 02/02/17 01:30 White Blood Count 12.3 H Red Blood Count 3.48 L Hemoglobin 10.8 L Hematocrit 32.4 L Mean Corpuscular Volume 93.1 Mean Corpuscular Hemoglobin 31.0 Mean Corpuscular Hemoglobin Concent 33.3 Red Cell Distribution Width 13.3 Platelet Count 204 Mean Platelet Volume 12.2 H Neutrophils % 78.5 H Lymphocytes % 9.3 L Monocytes % 10.7 Eosinophils % 0.3 Basophils % 0.4 Nucleated Red Blood Cells % 0.0 Neutrophils # 9.6 H Lymphocytes # 1.1 Monocytes # 1.3 H Eosinophils # 0.0 Basophils # 0.1 Nucleated Red Blood Cells # 0.0 Prothrombin Time 28.1 H Prothrombin Time Ratio 2.2 INR International Normalized Ratio 2.55 Activated Partial Thromboplast Time 39.4 H Sodium Level 132 L Potassium Level 5.3 H Chloride Level 92 L Carbon Dioxide Level 24 Anion Gap 21 H Blood Urea Nitrogen 33 H Creatinine 6.24 H Glucose Level 508 *H Calcium Level 9.2 Troponin I 0.058 B-Type Natriuretic Peptide 78974 H Bedside Glucose 396 H 429 *H Blood Gas Specimen Source Blood arterial Arterial Blood Date Drawn 02/02/2017 1:30:00 AM Arterial Blood pH (Temp corrected) 7.347 L Arterial Blood pCO2 (Temp correct) 40.5 Arterial Blood pO2 (Temp corrected) 189.3 H Arterial Blood HCO3 21.7 L Arterial Blood Base Excess -3.7 L Arterial Blood Oxygen Saturation 98.9 H Mikal Test N/A Arterial Blood Gas Puncture Site Right Brachial Arterial Blood Carboxyhemoglobin 0.3 Arterial Blood Methemoglobin 0.1 Blood Gas A-a O2 Differential 483.2 H Oxyhemoglobin Percent 98.5 Total Hemoglobin 11.6 L Blood Gas Temperature 37.0 Blood Gas Modality MASK - NRB FiO2 100.0 Blood Gas Notified Whom [place] Blood Gas Notified Time 02/02/2017 1:44:09 AM Test 02/02/17 01:34 02/02/17 01:45 02/02/17 04:20 02/02/17 05:08 Bedside Glucose 409 *H 319 H 357 H White Blood Count 10.5 Red Blood Count 3.15 L Hemoglobin 9.8 L Hematocrit 29.8 L Mean Corpuscular Volume 94.6 Mean Corpuscular Hemoglobin 31.1 Mean Corpuscular Hemoglobin Concent 32.9 Red Cell Distribution Width 13.4 Platelet Count 186 Mean Platelet Volume 12.3 H Neutrophils % 80.2 H Lymphocytes % 9.0 L Monocytes % 9.4 Eosinophils % 0.1 Basophils % 0.4 Nucleated Red Blood Cells % 0.0 Neutrophils # 8.4 H Lymphocytes # 0.9 Monocytes # 1.0 H Eosinophils # 0.0 Basophils # 0.0 Nucleated Red Blood Cells # 0.0 Sodium Level 135 Potassium Level 4.8 Chloride Level 96 L Carbon Dioxide Level 25 Anion Gap 19 H Blood Urea Nitrogen 35 H Creatinine 6.35 H Glucose Level 415 *H Lactic Acid Level 2.5 *H Calcium Level 8.8 Phosphorus Level 5.0 H Magnesium Level 2.2 Total Bilirubin 0.0 L Direct Bilirubin 0.00 Indirect Bilirubin 0.0 Aspartate Amino Transf (AST/SGOT) 28 Alanine Aminotransferase (ALT/SGPT) 45 Alkaline Phosphatase 112 Creatine Kinase 69 Creatine Kinase Index 2.1 Creatinine Kinase MB (Mass) 1.44 Troponin I 0.053 Total Protein 6.5 Albumin 3.1 L Globulin 3.40 H Albumin/Globulin Ratio 0.91 Test 02/02/17 06:02 02/02/17 06:07 02/02/17 08:43 02/02/17 09:06 Prothrombin Time 32.2 H Prothrombin Time Ratio 2.5 INR International Normalized Ratio 3.02 Sodium Level 140 Potassium Level 4.6 Chloride Level 106 # Carbon Dioxide Level 19 L Anion Gap 20 H Blood Urea Nitrogen 32 H Creatinine 5.68 H Glucose Level 280 #H Hemoglobin A1c 9.1 H Calcium Level 8.0 L Phosphorus Level 4.4 Total Bilirubin 0.0 L Direct Bilirubin 0.00 Indirect Bilirubin 0.0 Aspartate Amino Transf (AST/SGOT) 30 Alanine Aminotransferase (ALT/SGPT) 43 Alkaline Phosphatase 112 Total Protein 6.1 Albumin 2.9 L Globulin 3.20 Albumin/Globulin Ratio 0.90 Triglycerides Level 85 Cholesterol Level 51 L LDL Cholesterol, Calculated 0 HDL Cholesterol 34 Cholesterol/HDL Ratio 1.5 Lipase 120 Thyroid Stimulating Hormone (TSH) 17.500 H Bedside Glucose 319 H 74 59 L Test 02/02/17 09:26 02/02/17 09:44 02/02/17 09:48 02/02/17 10:15 Blood Gas Specimen Source Blood arterial Arterial Blood Date Drawn 02/02/2017 9:40:04 AM Arterial Blood pH (Temp corrected) 7.355 Arterial Blood pCO2 (Temp correct) 40.0 Arterial Blood pO2 (Temp corrected) 242.3 H Arterial Blood HCO3 21.8 L Arterial Blood Base Excess -3.4 L Arterial Blood Oxygen Saturation 99.1 H Mikal Test N/A Arterial Blood Gas Puncture Site A-Line Arterial Blood Carboxyhemoglobin 0.3 Arterial Blood Methemoglobin 0.1 Blood Gas A-a O2 Differential 430.7 H Oxyhemoglobin Percent 98.7 Total Hemoglobin 12.6 Blood Gas Temperature 37.0 Blood Gas Modality MASK - NRB FiO2 100.0 Blood Gas Notified Whom [place] Blood Gas Notified Time 02/02/2017 9:47:55 AM Bedside Glucose 63 L 96 Creatine Kinase 70 Creatine Kinase Index 2.6 Creatinine Kinase MB (Mass) 1.79 Troponin I 0.066 Test 02/02/17 10:39 Bedside Glucose 101 Medications Medications Current Medications Acetaminophen (Tylenol Tab) 650 mg Q4H PRN PO NON-CARDIAC PAIN LEVEL (1-3); Start 02/01/17 at 22:30 Morphine Sulfate (morphine) 2 mg Q2H PRN IV FOR NON CARDIAC PAIN (4-10); Start 02/01/17 at 22:30 Al Hydrox/Mg Hydrox/Simethicone (Mag-Al Plus) 30 ml Q4H PRN PO GASTROINTESTINAL UPSET; Start 02/01/17 at 22:30 Ondansetron HCl (Zofran Inj) 4 mg Q4H PRN IV NAUSEA AND/OR VOMITING; Start at 22:30 Ondansetron HCl (Zofran Inj) 4 mg Q6H PRN IV NAUSEA AND/OR VOMITING; Start at 22:30 Nitroglycerin (Nitroglycerin (Sl Tab) 0.4 Mg) 1 tab Q5M PRN SL CHEST PAIN; Start 02/01/17 at 22:30 Acetaminophen (Tylenol Liquid) 650 mg Q6H PRN PO PAIN LEVEL 1-3 OR FEVER; Start 02/01/17 at 22:30 Pantoprazole (Protonix Iv) 40 mg DAILY@06 IV Last administered on 02/02/17t 06: 33; Admin Dose 40 MG; Start 02/02/17 at 06:00 Atorvastatin Calcium (Lipitor) 40 mg QHS PO ; Start 02/02/17 at 21:00 Benazepril HCl (Lotensin) 40 mg DAILY PO ; Start 02/02/17 at 09:00 Carvedilol (Coreg) 25 mg BID PO ; Start 02/02/17 at 09:00 Clonidine (Catapres) 0.2 mg BID PO ; Start 02/02/17 at 09:00 Clopidogrel Bisulfate (plaVIX) 75 mg DAILY PO ; Start 02/02/17 at 09:00 Docusate Sodium (Colace) 100 mg BID PO ; Start 02/02/17 at 09:00 Isosorbide Mononitrate (Imdur) 60 mg DAILY PO ; Start 02/02/17 at 09:00 Minoxidil (Loniten) 5 mg BID PO ; Start 02/02/17 at 09:00 Warfarin Sodium (Coumadin) 3 mg DAILY@17 PO ; Start 02/02/17 at 17:00 Aspirin (Aspirin) 81 mg DAILY PO ; Start 02/02/17 at 09:00 Miscellaneous Information 1 ea NOTE XX ; Start 02/01/17 at 23:00 Glucose (Glutose) 15 gm Q15M PRN PO DECREASED GLUCOSE; Start 02/01/17 at 23:00 Glucose (Glutose) 22.5 gm Q15M PRN PO DECREASED GLUCOSE; Start 02/01/17 at 23: 00 Dextrose (D50w Syringe) 25 ml Q15M PRN IV DECREASED GLUCOSE Last administered on 02/02/17 09:45; Admin Dose 25 ML; Start 02/01/17 at 23:00 Dextrose (D50w Syringe) 50 ml Q15M PRN IV DECREASED GLUCOSE; Start 02/01/17 at 23:00 Glucagon (Glucagen) 1 mg Q15M PRN IM DECREASED GLUCOSE; Start 02/01/17 at 23: 00 Glucose (Glutose) 15 gm Q15M PRN BUCCAL DECREASED GLUCOSE; Start 02/01/17 at 23:00 Metoclopramide HCl 10 mg 10 mg Q6H PRN IV NAUSEA AND/OR VOMITING Last administered on 02/02/17 00:34; Admin Dose 10 MG; Start 02/02/17 at 00:30 Norepinephrine/ Dextrose (Levophed/D5W) 500 ml @ 1.87 mls/hr TITRATE IV ; Start 02/02/17 at 09:00 Lorazepam 2 mg 2 mg Q6H PRN IV SEIZURES Last administered on 02/02/17 07:16; Admin Dose 2 MG; Start 02/02/17 at 02:30 Levetiracetam (Keppra 1,000mg/ 100ml (Pmx)) 100 ml @ 400 mls/hr Q12 IVPB Last administered on 02/02/17 10:06; Admin Dose 400 MLS/HR; Start 02/02/17 at 02:30 ; Stop 02/02/17 at 11:00 Diagnostic Test (Pha) (Accu-Chek) 1 ea Q1H XX Last administered on 02/02/17 10 :28; Admin Dose 1 EA; Start 02/02/17 at 03:00 Dextrose (D50w Syringe) 25 ml Q15M PRN IV Till BS 80 mg/dL or above x2; Start 02/02/17 at 03:00 Dextrose (D50w Syringe) 50 ml Q15M PRN IV Till BS 80 mg/dL or above x2; Start 02/02/17 at 03:00 Miscellaneous Information This patient avila... PRN PRN XX WOUND CARE; Start 02/02 at 05:00 Dopamine HCl/ Dextrose 250 ml @ 5.25 mls/hr TITRATE IV Last administered on t 06:24; Admin Dose 5.25 MLS/HR; Start 02/02/17 at 06:30 Levetiracetam/ Dextrose (Keppra Iv/D5W) 110 ml @ 440 mls/hr Q12 IV ; Start 02/02/17 at 21:00 OLIVE COON Feb 02, 2017 10:55
[2017-02-02] MEDS ORDERED: VANCOMYCIN IV PER PHARMACY XX SCH (11:00)
--- NOTE | 2017-02-02 11:12 | CONS ---
DATE OF ADMISSION: 02/01/2017 DATE OF CONSULTATION: NEPHROLOGY CONSULTATION REASON FOR CONSULTATION: Endstage renal disease. REQUESTING PHYSICIAN CONSULTATION: Dr. Connell. HISTORY OF PRESENT ILLNESS: This is a 51-year-old male with a past medical history of endstage sarah l disease on dialysis Sunday, , Sunday, last hemodialysis was yesterday, access is a Perm Cath, history of diabetes, dyslipidemia, hypertension, recent history of [place], who presented to [facility] with dizziness and vomiting. The patient upon arrival was noted to be critic ally ill, was in respiratory distress, placed on a nonrebreather. The patient's laboratory data als o showed findings of sodium 132, potassium 5.3. The patient was transferred to intensive care unit. While in intensive care unit, the patient developed severe bradycardia. A CT scan of the abdomen and pelvis was obtained which showed findings of pericardial effusion. The patient was therefore se en by water control supervisor, concerning for possible tamponade. The patient was also noted to be in shock an d on pressor support. There have been no reports of hemoptysis, hematemesis, hematochezia. In terms of patient's renal history, the patient has a history of endstage renal disease on dialysis . Last hemodialysis was yesterday. No other history is able to be provided. PAST MEDICAL HISTORY: As stated above, history of endstage renal disease, diabetes, peripheral vasc ular disease, hypertension. PAST SURGICAL HISTORY: Status post PermCath placement, status post toe amputation. ALLERGIES: NO KNOWN DRUG ALLERGIES. FAMILY HISTORY: Noncontributory. SOCIAL HISTORY: Does not drink, smoke or do drugs. MEDICATIONS: The patient's medications have been reviewed and reconciled. REVIEW OF SYSTEMS: Unable to do adequate review of systems as patient is obtunded. Pertinent posit mahesh obtained by reviewing medical records, speaking to hospital staff, stated in HPI, otherwise neg ative. PHYSICAL EXAMINATION: VITAL SIGNS: Blood pressure is 185/75, respiration 18, pulse 88, temperature is 98.6. HEENT: Head is normocephalic. Pupils are reactive to light. NECK: Supple. HEART: Bradycardic. LUNGS: Show diminished breath sounds at base. ABDOMEN: Soft, nontender to palpation without rebound or guarding. EXTREMITIES: Negative for clubbing, cyanosis, no edema. DERMATOLOGIC: No rashes. MUSCULOSKELETAL: No joint effusions. NEUROLOGIC: Limited exam as the patient is obtunded. LABORATORY DATA: Shows sodium 140, potassium 4.6, chloride 106, BUN is 32, creatinine 5.68, glucose 319. Hemoglobin A1c is 9.8. White count 10.5, hemoglobin 9.8, platelet count is 186. ABG was rev iewed. IMAGING STUDIES: Reviewed. ASSESSMENT AND PLAN: This is a 51-year-old male who presents with: 1. Endstage renal disease. The patient may have underlying uremic pericarditis. Plan is for patie nt to undergo dialysis. We will attempt daily for solute clearance and volume removal if patient is hemodynamically stable. Would continue to monitor closely. 2. 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 The patient has pericardial effusion, arrhythmia. Plan is to con tinue daily dialysis for solute clearance and volume removal if hemodynamically stable as stated abo ve. The patient will be initiated on colchicine. No more than 0.6 mg daily. We will monitor close ly and follow up with cardiology. 3. Anemia. Monitor hemoglobin and hematocrit levels. We will give Epogen as needed. 4. Mineral bone disorder. Monitor calcium and phosphorus levels. 5. Shock, presumed sepsis. Continue pressor support. Continue antibiotic therapy. 6. Seizure disorder. Continue Keppra. 7. Acute hypoxemic respiratory failure, etiology secondary to congestive heart failure. Continue n onrebreather, follow up with pulmonary. 8. Coronary artery disease, status post percutaneous coronary intervention last week for acute chivo nary syndrome. Continue medical management. 9. Peripheral vascular disease, status post below-knee amputation. 10. Arrhythmia. Continue medical management. 11. Acute encephalopathy, etiology is multifactorial, toxic metabolic. Continue to monitor. Thank you, Dr. Connell, for this interesting consult. It will be a pleasure to follow the patient w ith you throughout the hospital course. Please note I spent over 40 minutes critical care time with this patient. Dictated By: PARAM WILEY DO NR/ADRIANE Conf#: [id number] DID#: [id number] CC: BRADY CONNELL MD;*EndCC*
--- NOTE | 2017-02-02 12:12 | CONS ---
DATE OF ADMISSION: 02/01/2017 DATE OF CONSULTATION: 02/02/2017 PULMONARY CRITICAL CARE CONSULT REFERRING PHYSICIAN: Dr. Phani Pope. REASON FOR REFERRAL: Evaluation of hypoxemia. HISTORY OF PRESENT ILLNESS: Mr. Olivares is a 51-year-old male who came into the hospital yesterday not feeling well with chest pressure and shortness of breath. Upon evaluation, the patient was diagnosed with acute ST elevation MN, was taken to the landscaping and groundskeeping laborer emergently, which revealed diffuse disease and no intervention was done. The patient was sent to recovery where apparently the patient had a grand mal seizure. After that, he was transferred to ICU. By the time I saw the patient, the patient was on nonrebreather mask, was somewhat arousable, but appeared to be postictal. History was obtained from medical records. PAST MEDICAL HISTORY: 1. End-stage renal disease. 2. 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 3. History of right below knee amputation. 4. Hypertension. 5. Anemia of chronic disease. 6. Diabetes. 7. Hyperlipidemia. 8. Hypertension. 9. History of recent MN. MEDICATIONS: Patient is on: 1. Sliding scale insulin. 2. Keppra 1 gram q.12h. IV. 3. Normal saline at 75 mL per hour. 4. Aspirin was given 325 mg x1. 5. Lotensin 40 mg daily. 6. Atorvastatin 40 mg a day. 7. Coreg 25 mg b.i.d. 8. Plavix 75 mg a day. 9. Lantus insulin, currently on hold. ALLERGIES: NONE. SOCIAL HISTORY: Currently not available. FAMILY HISTORY: The patient apparently has a supportive family. OCCUPATIONAL HISTORY: The patient is on disability. REVIEW OF SYSTEMS: Unable to be obtained. PHYSICAL EXAMINATION: GENERAL: Middle-aged male, on 100% nonrebreather, minimally responsive, currently in no distress. VITAL SIGNS: Temperature 98 degrees Fahrenheit, pulse 78 per minute, respiratory rate is 18 per minute, blood pressure 88/75, O2 saturation 100%. HEENT: Supple neck: No JVD, no lymphadenopathy, midline trachea, no thyromegaly. Pupils are small bilaterally. Patient has fair dentition. CHEST: Clear to auscultation. HEART: S1, S2 audible. No murmurs, regular rhythm. ABDOMEN: Soft, nondistended. No organomegaly. Bowel sounds audible. EXTREMITIES: The patient has well healed right below knee amputation stump, there is partial left hand amputation. No peripheral edema. CENTRAL NERVOUS SYSTEM: Patient is postictal. LABORATORY DATA: Chest x-ray was reviewed from today which is showing cardiomegaly with mild pulmonary vascular congestion. ABG done at 9:26 a.m. on 100% nonrebreather mask, pH 7.35, pCO2 of 40, pO2 of 242. Sodium 142, potassium 4.6, chloride 106, bicarbonate 19, BUN 32, creatinine 5.6. ALT 30, AST of 43. BNP level of 10,000 drawn at 9:10 p.m. last night. CPK 1.44. ASSESSMENT AND RECOMMENDATIONS: 1. Patient admitted for acute MN with ST elevation myocardial infarction, status post emergent angiography which revealed diffuse disease. 2. Grand mal seizure. 3. History of end-stage renal disease. 4. Diabetes. 5. Hypertension. 6. Prior history of coronary artery disease. RECOMMENDATIONS: Continue current supportive care. The patient currently is hemodynamically stable. We will await for the patient to be off postictal state. Currently he does not need to be intubated. Dictated By: OLIVE GUIDO/ADRIANE Conf#: [id number] DID#: [id number] MTDD
[2017-02-02] MEDS ORDERED: VANCOMYCIN 1.5 GM in SOD CHLORIDE 0.9% 250 ML IVPB SCH (13:00)
[2017-02-02] MEDS ORDERED: ALBUMIN HUMAN 25% 100 ML IV ONE (14:00)
[2017-02-02] MEDS ORDERED: PIPER-TAZO 2.25 GM (PMX) 50 ML IVPB SCH (14:00)
--- NOTE | 2017-02-02 14:23 | PN ---
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, intense HD per renal Shock: presumed septic - Broad spectrum abx - Await cultures - Hold BP meds CAD: - Aspirin and plavix ESRD: - Continue HD per renal DMII: - Basal/bolus insulin Seizure: - Continue keppra - Neurology consulted - Head CT normal - EEG per neuro ICU time > 35 minutes Problems: Subjective 24 Hr Interval Summary Free Text/Dictation Presumed seizure this AM, s/p keppra/ativan Undergoing HD now LHC showed no obstructive disease Patient lethargic, minimally interactive with me but appears comfortable On dopamine Exam/Review of Systems Vital Signs Vitals Vital Signs Date Time Temp Pulse Resp B/P Pulse Ox O2 Delivery O2 Flow Rate FiO2 02/02/17 11:15 87 31 126/60 100 02/02/17 11:00 Non Rebreather 15.0 02/02/17 08:00 97.5 02/01/17 21:10 28 Intake and Output 02/01/17 02/01/17 02/02/17 15:00 23:00 07:00 Intake Total 1896.775 ml Balance 1896.775 ml Exam Lethargic, somnulent Responds to noxious stimuli Permacath in chest LUE fisulta RRR Lungs rhoncourous Abdomen sof tn tnd Ext without edema Results Result Diagram: 02/02/17 0145 02/02/17 0602 Results 24 hrs Laboratory Tests Test 02/01/17 21:10 02/01/17 22:55 02/02/17 01:04 02/02/17 01:30 White Blood Count 12.3 H Red Blood Count 3.48 L Hemoglobin 10.8 L Hematocrit 32.4 L Mean Corpuscular Volume 93.1 Mean Corpuscular Hemoglobin 31.0 Mean Corpuscular Hemoglobin Concent 33.3 Red Cell Distribution Width 13.3 Platelet Count 204 Mean Platelet Volume 12.2 H Neutrophils % 78.5 H Lymphocytes % 9.3 L Monocytes % 10.7 Eosinophils % 0.3 Basophils % 0.4 Nucleated Red Blood Cells % 0.0 Neutrophils # 9.6 H Lymphocytes # 1.1 Monocytes # 1.3 H Eosinophils # 0.0 Basophils # 0.1 Nucleated Red Blood Cells # 0.0 Prothrombin Time 28.1 H Prothrombin Time Ratio 2.2 INR International Normalized Ratio 2.55 Activated Partial Thromboplast Time 39.4 H Sodium Level 132 L Potassium Level 5.3 H Chloride Level 92 L Carbon Dioxide Level 24 Anion Gap 21 H Blood Urea Nitrogen 33 H Creatinine 6.24 H Glucose Level 508 *H Calcium Level 9.2 Troponin I 0.058 B-Type Natriuretic Peptide 37534 H Bedside Glucose 396 H 429 *H Blood Gas Specimen Source Blood arterial Arterial Blood Date Drawn 02/02/2017 1:30:00 AM Arterial Blood pH (Temp corrected) 7.347 L Arterial Blood pCO2 (Temp correct) 40.5 Arterial Blood pO2 (Temp corrected) 189.3 H Arterial Blood HCO3 21.7 L Arterial Blood Base Excess -3.7 L Arterial Blood Oxygen Saturation 98.9 H Mikal Test N/A Arterial Blood Gas Puncture Site Right Brachial Arterial Blood Carboxyhemoglobin 0.3 Arterial Blood Methemoglobin 0.1 Blood Gas A-a O2 Differential 483.2 H Oxyhemoglobin Percent 98.5 Total Hemoglobin 11.6 L Blood Gas Temperature 37.0 Blood Gas Modality MASK - NRB FiO2 100.0 Blood Gas Notified Whom DC Blood Gas Notified Time 02/02/2017 1:44:09 AM Test 02/02/17 01:34 02/02/17 01:45 02/02/17 04:20 02/02/17 05:08 Bedside Glucose 409 *H 319 H 357 H White Blood Count 10.5 Red Blood Count 3.15 L Hemoglobin 9.8 L Hematocrit 29.8 L Mean Corpuscular Volume 94.6 Mean Corpuscular Hemoglobin 31.1 Mean Corpuscular Hemoglobin Concent 32.9 Red Cell Distribution Width 13.4 Platelet Count 186 Mean Platelet Volume 12.3 H Neutrophils % 80.2 H Lymphocytes % 9.0 L Monocytes % 9.4 Eosinophils % 0.1 Basophils % 0.4 Nucleated Red Blood Cells % 0.0 Neutrophils # 8.4 H Lymphocytes # 0.9 Monocytes # 1.0 H Eosinophils # 0.0 Basophils # 0.0 Nucleated Red Blood Cells # 0.0 Sodium Level 135 Potassium Level 4.8 Chloride Level 96 L Carbon Dioxide Level 25 Anion Gap 19 H Blood Urea Nitrogen 35 H Creatinine 6.35 H Glucose Level 415 *H Lactic Acid Level 2.5 *H Calcium Level 8.8 Phosphorus Level 5.0 H Magnesium Level 2.2 Total Bilirubin 0.0 L Direct Bilirubin 0.00 Indirect Bilirubin 0.0 Aspartate Amino Transf (AST/SGOT) 28 Alanine Aminotransferase (ALT/SGPT) 45 Alkaline Phosphatase 112 Creatine Kinase 69 Creatine Kinase Index 2.1 Creatinine Kinase MB (Mass) 1.44 Troponin I 0.053 Total Protein 6.5 Albumin 3.1 L Globulin 3.40 H Albumin/Globulin Ratio 0.91 Test 02/02/17 06:02 02/02/17 06:07 02/02/17 08:43 02/02/17 09:06 Prothrombin Time 32.2 H Prothrombin Time Ratio 2.5 INR International Normalized Ratio 3.02 Sodium Level 140 Potassium Level 4.6 Chloride Level 106 # Carbon Dioxide Level 19 L Anion Gap 20 H Blood Urea Nitrogen 32 H Creatinine 5.68 H Glucose Level 280 #H Hemoglobin A1c 9.1 H Calcium Level 8.0 L Phosphorus Level 4.4 Total Bilirubin 0.0 L Direct Bilirubin 0.00 Indirect Bilirubin 0.0 Aspartate Amino Transf (AST/SGOT) 30 Alanine Aminotransferase (ALT/SGPT) 43 Alkaline Phosphatase 112 Total Protein 6.1 Albumin 2.9 L Globulin 3.20 Albumin/Globulin Ratio 0.90 Triglycerides Level 85 Cholesterol Level 51 L LDL Cholesterol, Calculated 0 HDL Cholesterol 34 Cholesterol/HDL Ratio 1.5 Lipase 120 Thyroid Stimulating Hormone (TSH) 17.500 H Bedside Glucose 319 H 74 59 L Test 02/02/17 09:26 02/02/17 09:44 02/02/17 09:48 02/02/17 10:15 Blood Gas Specimen Source Blood arterial Arterial Blood Date Drawn 02/02/2017 9:40:04 AM Arterial Blood pH (Temp corrected) 7.355 Arterial Blood pCO2 (Temp correct) 40.0 Arterial Blood pO2 (Temp corrected) 242.3 H Arterial Blood HCO3 21.8 L Arterial Blood Base Excess -3.4 L Arterial Blood Oxygen Saturation 99.1 H Mikal Test N/A Arterial Blood Gas Puncture Site A-Line Arterial Blood Carboxyhemoglobin 0.3 Arterial Blood Methemoglobin 0.1 Blood Gas A-a O2 Differential 430.7 H Oxyhemoglobin Percent 98.7 Total Hemoglobin 12.6 Blood Gas Temperature 37.0 Blood Gas Modality MASK - NRB FiO2 100.0 Blood Gas Notified Whom JLD Blood Gas Notified Time 02/02/2017 9:47:55 AM Bedside Glucose 63 L 96 Creatine Kinase 70 Creatine Kinase Index 2.6 Creatinine Kinase MB (Mass) 1.79 Troponin I 0.066 Test 02/02/17 10:39 02/02/17 12:28 02/02/17 13:19 Bedside Glucose 101 125 114 Medications Medications Current Medications Acetaminophen (Tylenol Tab) 650 mg Q4H PRN PO NON-CARDIAC PAIN LEVEL (1-3); Start 02/01/17 at 22:30 Morphine Sulfate (morphine) 2 mg Q2H PRN IV FOR NON CARDIAC PAIN (4-10); Start 02/01/17 at 22:30 Al Hydrox/Mg Hydrox/Simethicone (Mag-Al Plus) 30 ml Q4H PRN PO GASTROINTESTINAL UPSET; Start 02/01/17 at 22:30 Ondansetron HCl (Zofran Inj) 4 mg Q4H PRN IV NAUSEA AND/OR VOMITING; Start at 22:30 Nitroglycerin (Nitroglycerin (Sl Tab) 0.4 Mg) 1 tab Q5M PRN SL CHEST PAIN; Start 02/01/17 at 22:30 Acetaminophen (Tylenol Liquid) 650 mg Q6H PRN PO PAIN LEVEL 1-3 OR FEVER; Start 02/01/17 at 22:30 Pantoprazole (Protonix Iv) 40 mg DAILY@06 IV Last administered on 02/02/17t 06: 33; Admin Dose 40 MG; Start 02/02/17 at 06:00 Atorvastatin Calcium (Lipitor) 40 mg QHS PO ; Start 02/02/17 at 21:00 Carvedilol (Coreg) 25 mg BID PO ; Start 02/02/17 at 09:00 Clopidogrel Bisulfate (plaVIX) 75 mg DAILY PO ; Start 02/02/17 at 09:00 Docusate Sodium (Colace) 100 mg BID PO ; Start 02/02/17 at 09:00 Isosorbide Mononitrate (Imdur) 60 mg DAILY PO ; Start 02/02/17 at 09:00 Warfarin Sodium (Coumadin) 3 mg DAILY@17 PO ; Start 02/02/17 at 17:00; Status Future hold Aspirin (Aspirin) 81 mg DAILY PO ; Start 02/02/17 at 09:00 Miscellaneous Information 1 ea NOTE XX ; Start 02/01/17 at 23:00 Glucose (Glutose) 15 gm Q15M PRN PO DECREASED GLUCOSE; Start 02/01/17 at 23:00 Glucose (Glutose) 22.5 gm Q15M PRN PO DECREASED GLUCOSE; Start 02/01/17 at 23: 00 Dextrose (D50w Syringe) 25 ml Q15M PRN IV DECREASED GLUCOSE Last administered on 02/02/17 09:45; Admin Dose 25 ML; Start 02/01/17 at 23:00 Dextrose (D50w Syringe) 50 ml Q15M PRN IV DECREASED GLUCOSE; Start 02/01/17 at 23:00 Glucagon (Glucagen) 1 mg Q15M PRN IM DECREASED GLUCOSE; Start 02/01/17 at 23: 00 Glucose (Glutose) 15 gm Q15M PRN BUCCAL DECREASED GLUCOSE; Start 02/01/17 at 23:00 Metoclopramide HCl 10 mg 10 mg Q6H PRN IV NAUSEA AND/OR VOMITING Last administered on 02/02/17 00:34; Admin Dose 10 MG; Start 02/02/17 at 00:30 Norepinephrine/ Dextrose (Levophed/D5W) 500 ml @ 1.87 mls/hr TITRATE IV Last administered on 02/02/17 10:54; Admin Dose 46.87 MLS/HR; Start 02/02/17 at 09: 00 Lorazepam (Ativan) 2 mg Q6H PRN IV SEIZURES Last administered on 02/02/17 07: 16; Admin Dose 2 MG; Start 02/02/17 at 02:30 Dextrose (D50w Syringe) 25 ml Q15M PRN IV Till BS 80 mg/dL or above x2; Start 02/02/17 at 03:00 Dextrose (D50w Syringe) 50 ml Q15M PRN IV Till BS 80 mg/dL or above x2; Start 02/02/17 at 03:00 Miscellaneous Information This patient avila... PRN PRN XX WOUND CARE; Start 02/02 at 05:00 Dopamine HCl/ Dextrose 250 ml @ 5.25 mls/hr TITRATE IV Last administered on 06:24; Admin Dose 5.25 MLS/HR; Start 02/02/17 at 06:30 Levetiracetam 1000 mg/Dextrose 110 ml @ 440 mls/hr Q12 IV ; Start 02/02/17 at 21:00 Piperacillin Sod/ Tazobactam Sod 50 ml @ 100 mls/hr Q8 IVPB ; Start 02/02/17 at 14:00 Vancomycin HCl 1.5 gm/Sodium Chloride 250 ml @ 83.333 mls/ hr ONCE IVPB Last administered on 02/02/17 13:27; Admin Dose 83.333 MLS/HR; Start 02/02/17 at 13: 00; Stop 02/02/17 at 15:59 Albumin Human (Albumin Human 25%) 100 ml @ 100 mls/hr ONCE ONCE IV ; Start at 14:00; Stop 02/02/17 at 14:59 DANIELLE PAUL MD Feb 02, 2017 14:23
--- NOTE | 2017-02-02 16:49 | DES ---
Date/Time of Note Date/Time of Note DATE: 02/02/17 TIME: 16:45 Discharge/ Summary Admission/Discharge Info Admit Date/Time Feb 01, 2017 at 22:45 Discharge Date/Time Final Diagnosis Sepsis Preliminary Cause of Pericarditis, sepsis, ESRD Hospital Course Patient was admitted after presumed seizure. Had ST elevations and taken to lab animal technician showing no obstructive coronary disease. Echo showed pericardial effusion without tamponade. This was presumed to be uremic so HD was started. The patient was hypotensive requiring pressors. Broad spectrum abx were given. Unfortunately, the patient developed PEA arrest. ACLS was administered though was unsuccessful. Patient had no pulse or cranial nerve reflexes and was pronounced by Dr Oseguera, code outreach team member. Family at the bedside was made aware. Pending Labs/Cultures Laboratory Tests Test 02/01/17 21:10 02/01/17 22:55 02/02/17 01:04 02/02/17 01:30 White Blood Count 12.310^3/ul (4.8-10.8) Red Blood Count 3.4810^6/ul (4.70-6.10) Hemoglobin 10.8g/dl (14.0-18.0) Hematocrit 32.4% (42.0-52.0) Mean Corpuscular Volume 93.1fl (82.0-101.0) Mean Corpuscular Hemoglobin 31.0pg (29.0-33.0) Mean Corpuscular Hemoglobin Concent 33.3g/dl (32.0-37.0) Red Cell Distribution Width 13.3% (11.5-14.5) Platelet Count 23849^3/UL (140-415) Mean Platelet Volume 12.2fl (7.4-10.4) Neutrophils % 78.5% (39.0-77.0) Lymphocytes % 9.3% (15.0-51.0) Monocytes % 10.7% (0.0-11.0) Eosinophils % 0.3% (0.0-7.0) Basophils % 0.4% (0.0-2.0) Nucleated Red Blood Cells % 0.0/100WBC (0.0-0.0) Neutrophils # 9.610^3/ul (1.6-7.5) Lymphocytes # 1.110^3/ul (0.8-2.9) Monocytes # 1.310^3/ul (0.3-0.9) Eosinophils # 0.010^3/ul (0.0-0.5) Basophils # 0.110^3/ul (0.0-0.1) Nucleated Red Blood Cells # 0.010^3/ul (0.0-0.0) Prothrombin Time 28.1Sec (11.9-14.9) Prothrombin Time Ratio 2.2 INR International Normalized Ratio 2.55 Activated Partial Thromboplast Time 39.4Sec (25.0-35.0) Sodium Level 132mmol/L (135-144) Potassium Level 5.3mmol/L (3.5-5.1) Chloride Level 92mmol/L (97-110) Carbon Dioxide Level 24mmol/L (21-31) Anion Gap 21 (8-16) Blood Urea Nitrogen 33mg/dl (7-20) Creatinine 6.24mg/dl (0.61-1.24) Glucose Level 508mg/dl (70-220) Calcium Level 9.2mg/dl (8.4-10.2) Troponin I 0.058ng/ml (0.00-0.12) B-Type Natriuretic Peptide 02266PE/ML (0-125) Bedside Glucose 396mg/dL (70-220) 429mg/dL (70-220) Blood Gas Specimen Source Blood arterial Arterial Blood Date Drawn 02/02/2017 1:30:00 AM Arterial Blood pH (Temp corrected) 7.347 (7.350-7.450) Arterial Blood pCO2 (Temp correct) 40.5mmhg (35-45) Arterial Blood pO2 (Temp corrected) 189.3mmHG (80-100.0) Arterial Blood HCO3 21.7mmol/L (22.0-26.0) Arterial Blood Base Excess -3.7mmol/L (-3.0-3) Arterial Blood Oxygen Saturation 98.9mmHG (95.0-98.0) Mikal Test N/A Arterial Blood Gas Puncture Site Right Brachial Arterial Blood Carboxyhemoglobin 0.3% (0.0-3.0) Arterial Blood Methemoglobin 0.1% (0.0-1.5) Blood Gas A-a O2 Differential 483.2mmHg (7.0-24.0) Oxyhemoglobin Percent 98.5% (93.0-99.0) Total Hemoglobin 11.6g/dl (12.0-18.0) Blood Gas Temperature 37.0C Blood Gas Modality MASK - NRB FiO2 100.0% Blood Gas Notified Whom MOODY Blood Gas Notified Time 02/02/2017 1:44:09 AM Test 02/02/17 01:34 02/02/17 01:45 02/02/17 04:20 02/02/17 05:08 Bedside Glucose 409mg/dL (70-220) 319mg/dL (70-220) 357mg/dL (70-220) White Blood Count 10.510^3/ul (4.8-10.8) Red Blood Count 3.1510^6/ul (4.70-6.10) Hemoglobin 9.8g/dl (14.0-18.0) Hematocrit 29.8% (42.0-52.0) Mean Corpuscular Volume 94.6fl (82.0-101.0) Mean Corpuscular Hemoglobin 31.1pg (29.0-33.0) Mean Corpuscular Hemoglobin Concent 32.9g/dl (32.0-37.0) Red Cell Distribution Width 13.4% (11.5-14.5) Platelet Count 63287^3/UL (140-415) Mean Platelet Volume 12.3fl (7.4-10.4) Neutrophils % 80.2% (39.0-77.0) Lymphocytes % 9.0% (15.0-51.0) Monocytes % 9.4% (0.0-11.0) Eosinophils % 0.1% (0.0-7.0) Basophils % 0.4% (0.0-2.0) Nucleated Red Blood Cells % 0.0/100WBC (0.0-0.0) Neutrophils # 8.410^3/ul (1.6-7.5) Lymphocytes # 0.910^3/ul (0.8-2.9) Monocytes # 1.010^3/ul (0.3-0.9) Eosinophils # 0.010^3/ul (0.0-0.5) Basophils # 0.010^3/ul (0.0-0.1) Nucleated Red Blood Cells # 0.010^3/ul (0.0-0.0) Sodium Level 135mmol/L (135-144) Potassium Level 4.8mmol/L (3.5-5.1) Chloride Level 96mmol/L (97-110) Carbon Dioxide Level 25mmol/L (21-31) Anion Gap 19 (8-16) Blood Urea Nitrogen 35mg/dl (7-20) Creatinine 6.35mg/dl (0.61-1.24) Glucose Level 415mg/dl (70-220) Lactic Acid Level 2.5mmol/L (0.5-2.0) Calcium Level 8.8mg/dl (8.4-10.2) Phosphorus Level 5.0mg/dl (2.5-4.9) Magnesium Level 2.2mg/dl (1.7-2.5) Total Bilirubin 0.0mg/dl (0.2-1.3) Direct Bilirubin 0.00mg/dl (0.00-0.20) Indirect Bilirubin 0.0mg/dl (0-1.1) Aspartate Amino Transf (AST/SGOT) 28IU/L (15-46) Alanine Aminotransferase (ALT/SGPT) 45IU/L (13-69) Alkaline Phosphatase 112IU/L (42-121) Creatine Kinase 69IU/L (23-200) Creatine Kinase Index 2.1 Creatinine Kinase MB (Mass) 1.44ng/ml (0.0-2.4) Troponin I 0.053ng/ml (0.00-0.12) Total Protein 6.5g/dl (6.1-8.1) Albumin 3.1g/dl (3.3-4.9) Globulin 3.40g/dl (1.3-3.2) Albumin/Globulin Ratio 0.91 Free Thyroxine 1.14ng/dl (0.64-1.79) Test 02/02/17 06:02 02/02/17 06:07 02/02/17 08:43 02/02/17 09:06 Prothrombin Time 32.2Sec (11.9-14.9) Prothrombin Time Ratio 2.5 INR International Normalized Ratio 3.02 Sodium Level 140mmol/L (135-144) Potassium Level 4.6mmol/L (3.5-5.1) Chloride Level 106mmol/L (97-110) Carbon Dioxide Level 19mmol/L (21-31) Anion Gap 20 (8-16) Blood Urea Nitrogen 32mg/dl (7-20) Creatinine 5.68mg/dl (0.61-1.24) Glucose Level 280mg/dl (70-220) Hemoglobin A1c 9.1% (0-5.9) Calcium Level 8.0mg/dl (8.4-10.2) Phosphorus Level 4.4mg/dl (2.5-4.9) Total Bilirubin 0.0mg/dl (0.2-1.3) Direct Bilirubin 0.00mg/dl (0.00-0.20) Indirect Bilirubin 0.0mg/dl (0-1.1) Aspartate Amino Transf (AST/SGOT) 30IU/L (15-46) Alanine Aminotransferase (ALT/SGPT) 43IU/L (13-69) Alkaline Phosphatase 112IU/L (42-121) Total Protein 6.1g/dl (6.1-8.1) Albumin 2.9g/dl (3.3-4.9) Globulin 3.20g/dl (1.3-3.2) Albumin/Globulin Ratio 0.90 Triglycerides Level 85mg/dl (0-149) Cholesterol Level 51mg/dl (100-200) LDL Cholesterol, Calculated 0mg/dl HDL Cholesterol 34mg/dl (28-71) Cholesterol/HDL Ratio 1.5RATIO Lipase 120U/L (23-300) Thyroid Stimulating Hormone (TSH) 17.500MIU/L (0.465-4.680) Bedside Glucose 319mg/dL (70-220) 74mg/dL (70-220) 59mg/dL (70-220) Test 02/02/17 09:26 02/02/17 09:44 02/02/17 09:48 02/02/17 10:15 Blood Gas Specimen Source Blood arterial Arterial Blood Date Drawn 02/02/2017 9:40:04 AM Arterial Blood pH (Temp corrected) 7.355 (7.350-7.450) Arterial Blood pCO2 (Temp correct) 40.0mmhg (35-45) Arterial Blood pO2 (Temp corrected) 242.3mmHG (80-100.0) Arterial Blood HCO3 21.8mmol/L (22.0-26.0) Arterial Blood Base Excess -3.4mmol/L (-3.0-3) Arterial Blood Oxygen Saturation 99.1mmHG (95.0-98.0) Mikal Test N/A Arterial Blood Gas Puncture Site A-Line Arterial Blood Carboxyhemoglobin 0.3% (0.0-3.0) Arterial Blood Methemoglobin 0.1% (0.0-1.5) Blood Gas A-a O2 Differential 430.7mmHg (7.0-24.0) Oxyhemoglobin Percent 98.7% (93.0-99.0) Total Hemoglobin 12.6g/dl (12.0-18.0) Blood Gas Temperature 37.0C Blood Gas Modality MASK - NRB FiO2 100.0% Blood Gas Notified Whom JLD Blood Gas Notified Time 02/02/2017 9:47:55 AM Bedside Glucose 63mg/dL (70-220) 96mg/dL (70-220) Creatine Kinase 70IU/L (23-200) Creatine Kinase Index 2.6 Creatinine Kinase MB (Mass) 1.79ng/ml (0.0-2.4) Troponin I 0.066ng/ml (0.00-0.12) Test 02/02/17 10:39 02/02/17 12:28 02/02/17 13:19 02/02/17 15:02 Bedside Glucose 101mg/dL (70-220) 125mg/dL (70-220) 114mg/dL (70-220) 151mg/dL (70-220) DANIELLE PAUL MD Feb 02, 2017 16:49
[2017-02-02] MEDS ORDERED: WARFARIN 3 MG TAB PO SCH (17:00)
--- NOTE | 2017-02-02 19:41 | QN ---
Documentation Comment I was called to the ICU for CODE JESUS. The patient is a 51-year-old male. I was informed that the patient had been admitted for pericardial effusion, renal failure, and possible sepsis. I was informed that there have been plan to perform a pericardial window. I was informed that the patient had had a asystolic arrest after becoming bradycardic. On my arrival CPR was in progress. The patient was receiving ventilation by bag valve mask. The patient had received 1 amp of epinephrine. I confirmed that adequate CPR was being performed, and there is good pulse with CPR. I instructed the nurses to administer additional epinephrine every 3 minutes as well as 1 amp of sodium bicarb. On subsequent rhythm check, the patient was in ventricular fibrillation. The patient was defibrillated and CPR was resumed. At the next rhythm check, the patient was intubated with a 7.5 ET tube with minimal pause and chest compressions. Tube placement was confirmed by auscultating breath sounds bilaterally, and by color change capnography. I spoke with the patient' s nurse behavioral health care, who advised me that an echo performed this morning showed only a small pericardial effusion without tamponade, and that she did not think the arrest was due to cardiac tamponade. She mentioned that the patient had planned to undergo dialysis, which had not yet occurred. There is also a question of whether the patient had sustained an ST elevation CT, which could not be confirmed by nursing staff. The patient was administered calcium in case of hyperkalemia. Last potassium was reported at 4.6. Given recurrent asystole, I performed a bedside ultrasound and saw a significant pericardial effusion with minimal cardiac motion. I decided to perform a pericardiocentesis. This was performed successfully with only brief pauses and CPR to facilitate placement of a catheter. Approximately 30-40 cc of clear yellow fluid was withdrawn. On subsequent ultrasound, the size of pericardial effusion appeared improved, but there was no cardiac activity. The patient remained in asystole despite prolonged CPR, and decision was made to pronounce the patient . Endotracheal Intubation by me: Pre assessment performed. Pre-oxygenation performed with 100% oxygen RSI: No medications due to patient in full arrest Blade: Mac 4 ET Tube: 7.5 cm Depth: 24 cm at the lip Intubation confirmed by colorimetric CO2, equal breath sounds, quiet over the stomach. No chest x-ray performed due to patient in cardiac arrest. Procedure: Pericardiocentesis Indication: Possible pericardial tamponade and cardiac arrest Consent: Deferred due to emergency procedure. Technique: Hand hygiene was performed. I donned sterile facemask, gown and gloves. The skin around the xiphoid process was cleaned with chlorhexidine. A sterile drape was applied. An introducer needle was placed just to the right of the subxiphoid space in a cephalad direction aimed towards the left shoulder. Clear yellow fluid was aspirated. A guidewire was placed through the introducer needle. A small ema was made in the skin and 2 dilators were used to dilate a tract into the pericardial space. A pigtail catheter was placed over the wire and the wire was removed. Clear yellow fluid without blood was aspirated from the pericardial space with approximate volume of 30-40 cc. Bedside ultrasound was performed to visualize the catheter in the pericardial space, but I was unable to save images for documentation. DANIELLE MATTA MD Feb 02, 2017 19:41
--- NOTE | 2017-02-02 19:43 | QN ---
Documentation Comment Cardiopulmonary Resuscitation by me: See code documentation for specific details. ACLS and BLS were performed with high quality chest compressions and minimal interruptions. Reversible causes were assessed and treated. DANIELLE MATTA MD Feb 02, 2017 19:43
[2017-02-02] MEDS ORDERED: INSULIN GLARGINE [LANtus] 3 ML PEN SC SCH (21:00)
[2017-02-02] MEDS ORDERED: LEVETIRACETAM IV 1,000 MG in DEXTROSE 5% 100 ML IV SCH (21:00)
[2017-02-02] MEDS ORDERED: ATORVASTATIN 40 MG TAB PO SCH (21:00)
[2017-02-03] MEDS ORDERED: FAMOTIDINE 20 MG INJ IV SCH (09:00)
--- NOTE | 2017-02-05 13:19 | RADRPT ---
Vent Rate: 74 bpm RR Interval: 0 msec IA Interval: 140 msec QRS Duration: 86 msec QT Interval: 378 msec QTC Interval: 419 msec P-R-T [place]: 62 - 102 - 77 degrees Normal sinus rhythm Possible Right ventricular hypertrophy ST elevation, consider inferolateral injury or acute infarct ACUTE [place] Abnormal ECG Electronically Signed By: Hank Louis [id number]
== END 2017-02-02 15:23 | disposition expired | DRG 871 ==
LOC: E/R 21:06 → REC 22:45 → MS4 23:23 → ICU 02-02 01:15
PROVIDERS: ADMIT Family Medicine; ATTEND Family Medicine
PROC: B2011ZZ Plain Radiography of Multiple Coronary Arteries using Low Osmolar Contrast (ICD-10-PCS; 2017-02-01)
PROC: B2051ZZ Plain Radiography of Left Heart using Low Osmolar Contrast (ICD-10-PCS; 2017-02-01)
PROC: 4A023N7 Measurement of Cardiac Sampling and Pressure, Left Heart, Percutaneous Approach (ICD-10-PCS; principal; 2017-02-01 16:00)
PROC: 5A1D70Z Performance of Urinary Filtration, Intermittent, Less than 6 Hours Per Day (ICD-10-PCS; 2017-02-02)
PROC: 0BH17EZ Insertion of Endotracheal Airway into Trachea, Via Natural or Artificial Opening (ICD-10-PCS; 2017-02-02)
PROC: 04HL33Z Insertion of Infusion Device into Left Femoral Artery, Percutaneous Approach (ICD-10-PCS; 2017-02-02)
PROC: 06HN33Z Insertion of Infusion Device into Left Femoral Vein, Percutaneous Approach (ICD-10-PCS; 2017-02-02)
PROC: 0W9D30Z Drainage of Pericardial Cavity with Drainage Device, Percutaneous Approach (ICD-10-PCS; 2017-02-02)
DX: A41.9 Sepsis, unspecified organism (principal); R65.21 Severe sepsis with septic shock; I22.1 Subsequent ST elevation (STEMI) myocardial infarction of inferior wall; I12.0 Hypertensive chronic kidney disease with stage 5 chronic kidney disease or end stage renal disease; J90 Pleural effusion, not elsewhere classified; N18.6 End stage renal disease; I32 Pericarditis in diseases classified elsewhere; R56.9 Unspecified convulsions; I21.9 Acute myocardial infarction, unspecified; I25.119 Atherosclerotic heart disease of native coronary artery with unspecified angina pectoris; Z95.5 Presence of coronary angioplasty implant and graft; Z79.02 Long term (current) use of antithrombotics/antiplatelets; Z99.2 Dependence on renal dialysis; Z87.891 Personal history of nicotine dependence; R00.1 Bradycardia, unspecified; Z89.511 Acquired absence of right leg below knee; I46.9 Cardiac arrest, cause unspecified
CPT/HCPCS: 31500; 36415; 36600; 70450; 71010; 74176; 80048; 80053; 80061; 82550; 82553; 82803; 82962; 83036; 83605; 83690; 83735; 83880; 84100; 84146; 84439; 84443; 84484; 85025; 85610; 85730; 87040; 87081; 92950; 93005; 93306; 93458; 96374; 96375; C1760; C1887; C1894; C9113; J0171; J0461; J1265; J1644; J1815; J1953; J2060; J2250; J2270; J2405; J2765; J3010; J3370; J7030; J7040; J7050; J7060; Q9967